=== PATIENT | female | born 1965 | race Caucasian/White ===

== ENCOUNTER 2024-11-28 15:11 | Outpatient (REF) | payer MEDICAID, SELFPAY ==
--- NOTE | 2024-11-28 15:23 | PFT_ITS ---
Flows: FEV1: 39 % of predicted at 0.97 L FVC: 56 % of predicted at 1.79 L FEV1/FVC: 54 % Bronchodilator response: Present Volumes: Total lung capacity: 74 % of predicted at 3.85 L Residual volume: 109 % of predicted at 1.95 L Slow vital capacity: 56 % of predicted at 1.91 L Expiratory reserve volume: 56 % of predicted at 0.47 L Diffusion capacity: Mildly decreased, corrects to normal after adjustment for alveolar ventilation. 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 Decreased expiratory reserve volume suggests extrathoracic restriction likely secondary to abdominal obesity. Decreased diffusion capacity suggests emphysema. MTDD
[2024-11-28 16:03] VITALS: PULSE 86; O2SAT 90
--- OUTSIDE RECORDS SUMMARY | 2024-11-28 17:33 | XMS_ITS | Clinical Summary ---
Author Organization [employer] Address [address] [facility] 7t [place] [address] Care Team Providers Care Retail Interior Designer Name Role Phone Thea Atkinson MD Primary Care Provider + Allergies No known active allergies Medications buPROPion SR (Wellbutrin SR) 100 MG 12 hr tablet Take 1 tablet (100 mg) by mouth 2 times daily. Do not crush, chew, or split. 60 tablet 3 10/23/19 25 026 Active fluticasone furoate (Arnuity Ellipta) 100 MCG/ACT inhaler Inhale 1 puff Once per day. Rinse mouth with water after use to reduce aftertaste and incidence of candidiasis. Do not swallow. 1 each 10/23/19 25 026 Active Blood Pressure Monitoring ([facility] Cuff[facility] Use daily as prescribed 1 each 10/23/19 25 Active Ventolin HFA 108 (90 Base) MCG/ACT inhaler INHALE 2 PUFFS EVERY 6 HOURS IF NEEDED FOR WHEEZING. 18 g 2 11/16/19 25 Active fexofenadine (Neris) 180 MG tablet Take 1 tablet (180 mg) by mouth if needed each day (Allergies). 90 tablet 11/29/19 25 025 Active fluticasone (Flonase) 50 MCG/ACT nasal spray Administer 1 spray into each nostril Once per day. 16 g 2 11/29/19 25 025 Active albuterol 108 (90 Base) MCG/ACT inhaler Inhale 2 puffs every 6 (six) hours if needed for wheezing. 18 g 10/23/19 25 025 Discontinued cetirizine (ZyrTEC) 10 MG tablet Take 1 tablet (10 mg) by mouth Once per day. 30 tablet 2 11/02/19 25 025 Discontinued(In effective) Active Problems Problem Noted Date Diagnosed Date Seasonal allergic rhinitis due to pollen 025 Moderate persistent asthma without complication 10/22/2024 Elevated blood pressure reading 10/22/2024 Encounters Date Type Department Care Team Description 11/23/2024 Telephone [facility] MEDICINE [address] [place] [phone] Thea Atkinson MD Nurse Triage 11/13/2024 Refill [facility] MEDICINE [address] [place] [address] Thea Atkinson MD 10/22/2024 10:45 AM EDT Office Visit [address] [address] Thea Atkinson MD Seasonal allergic rhinitis due to pollen (Primary Dx); Moderate persistent asthma without complication; Elevated blood pressure reading 10/22/2024 Travel 10/18/[address] [address] Keiko Gifford MA chart prep 10/16/2024 Patient Outreach [facility] [address] [place] [address] Thea Atkinson MD Pre-visit Planning (SDOH screening is negative) 08/31/2024 Population Health Risk Score [facility] () Department [address] [place] [phone] Provider, Population Health Generic from Last 3 Months Social History Tobacco Use Types Packs/Day Years Used Date Smoking Tobacco: Former Cigarettes Smokeless Tobacco: Never Comments:1/2 ppd x 43y, quit 6mo ago. Alcohol Use Standard Drinks/Week Comments Yes 0 (1 standard drink = 0.6 oz pur e alcohol) Housing Stability Answer Date Recorded What is your housing situation today? I have rocío santos 10/16/[address] you li ve. Do you have problems with any of the following? None of the above 10/16/2024 Food Insecurity Answer Date Recorded Within the past 12 months, y ou worried that your food would run out before you got money to buy more: Never True 10/16/2024 Within the past 12 months,th e food you bought just didn't last and you didn't have enough money to get more: Never True Transportation Answer Date Recorded In the past 12 months, has l ack of transportation kept you from medical appts, meetings, work or from getting things needed for daily living? No 10/16/2024 Utilities Answer Date Recorded In the past 12 months, has t he electric, gas, oil or water company threatened to shut off services in your home? No 10/16/2024 Internet Access Answer Date Recorded Internet Access Q1 Yes 10/16/2024 Internet Access Q2 Not on file 10/16/2024 Comments Unknown Sex and Gender Information Value Date Recorded Sex Assigned at Female 10/22/2024 10:35 AM EDT Legal Sex Female 1:49 PM EST Gender Identity Female 10/22/2024 10:35 AM EDT Sexual Orientation Don't know 10/22/2024 10 :35 AM EDT Last Filed Vital Signs Vital Sign Reading Time Taken Comments Blood Pressure 146/97 10/22/2024 10:46 AM EDT Pulse 76 10/22/2024 10:46 AM EDT Temperature 36.4 ??C (97.6 ??F) 10/22/2024 10:46 AM E DT Respiratory Rate 24 10/22/2024 10:46 AM EDT Oxygen Saturation 92% 10/22/2024 10:46 AM EDT Inhaled Oxygen Concentration - - Weight 93.2 kg (205 lb 6 oz) 10/22/2024 10:46 AM EDT Height - - Body Mass Index - - Plan of Treatment Upcoming Encounters Date Type Department Care Team (Late st Contact Info) Description 01/21/2025 3:15 PM EDT Office Visit [facility] MEDICINE [address] [place] [address] Thea Atkinson MD [address] [place] [address] Health Maintenance Due Date Last Done Comments CT Colonography 1963 Colonoscopy 1963 Colorectal Cancer Screening 1963 Depression Screening 1963 FIT DNA/Cologuard 1963 FIT 1963 FOBT 1963 HIV Screening 1963 Sigmoidoscopy 1963 Disability Screening 1963 Alcohol/Substance Use Screening 1975 Hepatitis C Screening 11/10/1981 DTaP/Tdap/Td Vaccines (1 - Tdap) 11/10/1982 Pneumococcal Vaccine: 50+ Ye ars (1 of 2 - PCV) 11/10/1982 Pap Smear 11/10/1984 Cervical Cancer Screening 11/10/1993 HPV/Cotest 11/10/1993 Mammogram 2003 Zoster Vaccines (1 of 2) 11/10/2013 RSV Patients and Pa tients Aged 60 years or older (1 - Risk 60-74 years 1-dose series) 2023 COVID-19 Vaccine (1 - 2023-2 5 season) 2024 Influenza Vaccine (Season Ended) 2025 SDOH Screening 10/16/2025 10/16/2024 Tobacco Screening 10/22/2025 10/22/2024 HIB Vaccines Aged Out No longer eligi ble based on patient's age to complete this topic HPV Vaccines Aged Out No longer eligi ble based on patient's age to complete this topic Hepatitis A Vaccines Aged Out No long er eligible based on patient's age to complete this topic Hepatitis B Vaccines Aged Out No long er eligible based on patient's age to complete this topic IPV Vaccines Aged Out No longer eligi ble based on patient's age to complete this topic Meningococcal B Vaccine Aged Out No l onger eligible based on patient's age to complete this topic Meningococcal Vaccine Aged Out No logan adelfo eligible based on patient's age to complete this topic RSV under 20 months Aged Out No longe r eligible based on patient's age to complete this topic Rotavirus Vaccines Aged Out No longer eligible based on patient's age to complete this topic Insurance [facility] C3 Care Teams Retail Interior Designer Relationship Specialty Start Date End Date Thea Atkinson MD [address] [place] [id number] PCP - General Internal Medicine 11/23/24
== END 2024-11-28 15:12 | disposition home or self-care (01) ==
LOC: HO.RESP 15:11
PROVIDERS: PCP Internal Medicine; Visit Provider Internal Medicine
DX: J45.40 Moderate persistent asthma, uncomplicated (principal)
CPT/HCPCS: 94010; 94640; 94727; 94729

== ENCOUNTER → 2024-11-28 15:23 | Outpatient (BNV) | payer MEDICAID, SELFPAY | PROVIDERS: PCP Internal Medicine; Visit Provider Internal Medicine Pulmonary Disease | DX: R06.00 Dyspnea, unspecified (principal) | CPT/HCPCS: 94060; 94727; 94729 ==

== ENCOUNTER 2025-02-11 16:20 | Outpatient (REF) | payer MEDICAID, SELFPAY ==
--- OUTSIDE RECORDS SUMMARY | 2025-02-11 18:05 | XMS_ITS | Encounter Summary ---
Author Organization [employer] Address [address] [facility] 7t [place] [address] Care Team Providers Care Financial Solutions Advisor Name Role Phone Thea Atkinson MD Primary Care Provider + Reason for Visit * Reason Onset Date Comments Med Refill 01/14/2025 Encounter Details Date Type Department Care Team (Late st Contact Info) Description 01/14/2025 Refill [facility] MEDICINE [address] [place], [place] [phone] Thea Atkinson MD [address] [place], [place] [phone] Social History Tobacco Use Types Packs/Day Years [...] Don't know 10/22/2024 10 :35 AM EDT documented as of this encounter Plan of Treatment Upcoming Encounters Date Type Department Care Team (Late st Contact Info) Description 04/04/2025 10:15 AM EDT Office Visit [facility] MEDICINE [address] [place] [address] Thea Atkinson MD [address] [place] [address] 05/03/2025 2:30 PM EST Office Visit [facility] OPTOMETRY [address] [place] [address] Elizabeth Mckeon, OD [address] [place] [address] documented as of this encounter Visit Diagnoses Not on filedocumented in this encounter Care Teams Financial Solutions Advisor Relationship Specialty Start Date End Date Thea Atkinson MD [address] [place] [address] PCP - General Internal Medicine 11/23/24 documented as of this encounter
--- OUTSIDE RECORDS SUMMARY | 2025-02-11 18:05 | XMS_ITS | Clinical Summary ---
Author Organization [employer] Address [address] [facility] 7t [place] [address] Care Team Providers Care Feed Handler Name Role Phone Thea Atkinson MD Primary Care Provider + Allergies No known active allergies Medications buPROPion SR (Wellbutrin SR) 100 MG 12 hr tablet Take 1 tablet (100 mg) by mouth 2 times daily. Do not crush, chew, or split. 60 tablet 3 5 10/23/19 26 Active fluticasone furoate (Arnuity Ellipta) 100 MCG/ACT inhaler Inhale 1 puff Once per day. Rinse mouth with water after use to reduce aftertaste and incidence of candidiasis. Do not swallow. 1 each 11 5 10/23/19 26 Active Blood Pressure Monitoring (Blood Pressure Cuff) misc Use daily as prescribed 1 each 5 Active Ventolin HFA 108 (90 Base) MCG/ACT inhaler INHALE 2 PUFFS EVERY 6 HOURS IF NEEDED FOR WHEEZING. 18 g 2 5 Active fexofenadine (Neris) 180 MG tablet Take 1 tablet (180 mg) by mouth if needed each day (Allergies). 90 tablet 5 02/27/20 25 Active fluticasone (Flonase) 50 MCG/ACT nasal spray Administer 1 spray into each nostril Once per day. 16 g 2 5 Active Multiple Vitamins-Mineral s (Eye Health Areds 2) capsuleIndicatio ns:Intermediate stage nonexudative age-related macular degeneration of left eye Take 1 tablet by mouth 2 times daily. 60 capsule 11 5 02/01/20 25 Active Problems Problem Noted Date Diagnosed Date Screening mammogram for breast cancer 12/25/2024 Seasonal allergic rhinitis due to pollen 025 Assessment & Plan (12/25/2024 3:12 PM EDT): Use OTC Claritin as needed and Flonase, follow-up with me in 6 weeks Moderate persistent asthma without complication 10/22/2024 Assessment & Plan (12/25/2024 3:16 PM EDT): Continue albuterol as needed Congratulated her for quitting smoking and discussed with her regarding nicotine replacement therapy and call back as needed for prescription Elevated blood pressure reading 10/22/2024 Assessment & Plan (12/25/2024 3:11 PM EDT): History of hypertension, Advised to check BP at home 3 times per week and follow-up with me in 6 weeks Counseled re low salt diet/increase moderate physical activity. Order labs Non smoking patient. Encounters Date Type Department Care Team Description 01/23/2025 11:00 AM EDT Office Visit [facility] OPTOMETRY [address] [facility] [address] Rosita Wade, OD Presbyopia (Primary Dx) 01/23/2025 Travel 01/22/[address] [facility] MEDICINE [address] [place] [address] Thea Atkinson MD PCP appt 01/18/[address] [facility] MEDICINE [address] [place] [address] Thea Atkinson MD Chart Prep 01/14/[address] [facility] [place] [address] Thea Atkinson MD 01/13/[address] [facility] MEDICINE [address] [place] [address] Thea Atkinson MD 12/31/2024 9:00 AM EDT Office Visit 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 MEDICINE [address] [place] [address] Thea Atkinson MD Nurse Triage 11/13/[address] [facility] MEDICINE [address] [place] [address] Thea Atkinson MD from Last 3 Months Social History Tobacco Use Types Packs/Day Years Used Date Smoking Tobacco: Former Cigarettes Smokeless Tobacco: Never Comments:06/21 ppd x 43y, quit 6mo ago. Alcohol Use Standard Drinks/Week Comments Yes 0 (1 standard drink = 0.6 oz pur e alcohol) Housing Stability Answer Date Recorded What is your housing situation today? I have rocíoberyl santos 10/16/[address] you [...] 76 10/22/2024 10:46 AM EDT Temperature 36.4 C (97.6 F) 10/22/2024 10:46 AM EDT Respiratory Rate 24 10/22/2024 10:46 AM EDT Oxygen Saturation 92% 10/22/2024 10:46 AM EDT Inhaled Oxygen Concentration - - Weight 93.2 kg (205 lb 6 oz) 10/22/2024 10:46 AM EDT Height - - Body Mass Index - - Plan of Treatment Upcoming Encounters Date Type Department Care Team (Late st Contact Info) Description 04/04/2025 10:15 AM EDT Office Visit [facility] MEDICINE [address] [place] [address] Thea Atkinson MD [address] [place] [address] 05/03/2025 2:30 PM EST Office Visit [facility] OPTOMETRY [address] [place] [address] Elizabeth Mckeon, OD [address] [place] [address] Health Maintenance Due Date Last Done Comments [...] 60-74 years 1-dose series) 2023 COVID-19 Vaccine ( - 2023-2 5 season) 2024 Influenza Vaccine (#1) 2025 SDOH Screening 10/16/2025 10/16/2024 Tobacco Screening 12/31/2025 12/31/2024 HIB Vaccines Aged Out No longer eligi [...] this topic Meningococcal Vaccine Aged Out No lgoan adelfo eligible based on patient's age to complete this topic RSV under 20 months Aged Out No longe r eligible based on patient's age to complete this topic Rotavirus Vaccines Aged Out No longer eligible based on patient's age to complete this topic Procedures Procedure Name Priority Date/Time Associated Diagnosis Comments OCT, RETINA - OU - BOTH EYES Routine 12/31/2024 9:00 AM EDT 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 OCT RETINA INTERPRETATION Optical Coherence Tomography Interpretation Report Reliability: OD: SS 46 - adequate quality scan OS: SS 55 - good quality scan Measurements: Central subfoveal thickness OD: 246 microns OS: 249 microns Test findings: OD: Hard drusen throughout macula, some early retinal pigment epithelium (RPE) pigment migration, (-) IRF/SRF. Baseline. OS: Mostly hard drusen with some coalescent drusen throughout macula, (-) IRF/SRF. Baseline. Impression and Plan: Early dry age-related macular degeneration (ARMD) right eye (OD), intermediate dry age-related macular degeneration (ARMD) left eye (OS). Monitor in 3 months us Elizabeth Mckeon OD OPHTH TOMOGRAPHY Final Result from Last 3 Months Insurance [facility] C3 Care Teams Feed Handler Relationship Specialty Start Date End Date Thea Atkinson MD [address] [place] [phone] PCP - General Internal Medicine 11/23/24
--- OUTSIDE RECORDS SUMMARY | 2025-02-11 18:05 | XMS_ITS | Encounter Summary ---
Author Organization [employer] Address [address] [facility] [address] 7t [place] [address] Care Team Providers Care Medical Reimbursement Specialist Name Role Phone Thea Atkinson MD Primary Care Provider + Reason for Visit * Reason Comments Med Refill Encounter Details Date Type Department Care Team ([facility] st Contact Info) Description 01/13/2025 Refill [facility] MEDICINE [address] [place], [place] [phone] Thea Atkinson MD [address] [place], [place] [phone] Social History Tobacco Use Types Packs/Day Years Used Date Smoking Tobacco: Former Cigarettes Smokeless Tobacco: Never Comments:1/ ppd x 43y, quit 6mo ago. Alcohol [...] Description 04/04/2025 10:15 AM EDT Office Visit [facility] MEDICINE [address] [place] [address] Thea Atkinson MD [address] [place] [address] 05/03/2025 2:30 PM EST Office Visit [facility] OPTOMETRY [address] [place] [address] Elizabeth Mckeon, OD [address] [place] [address] documented as of this encounter Visit Diagnoses Not on filedocumented in this encounter Care Teams Medical Reimbursement Specialist Relationship Specialty Start Date End Date Thea Atkinson MD [address] [place] [phone] PCP - General Internal Medicine 11/23/24 documented as of this encounter
== END 2025-02-11 16:21 | disposition home or self-care (01) ==
LOC: HO.MAMMO 16:20
PROVIDERS: PCP Internal Medicine; Visit Provider Internal Medicine
DX: Z12.31 Encounter for screening mammogram for malignant neoplasm of breast (principal)
CPT/HCPCS: 77063; 77067

== ENCOUNTER → 2025-02-11 16:30 | Outpatient (BNV) | payer MEDICAID, SELFPAY | PROVIDERS: PCP Internal Medicine; Visit Provider Radiology Body Imaging | DX: Z12.31 Encounter for screening mammogram for malignant neoplasm of breast (principal) | CPT/HCPCS: 77063; 77067 ==

== ENCOUNTER 2025-04-04 08:41 | Outpatient (REF) | payer MEDICAID, SELFPAY ==
--- OUTSIDE RECORDS SUMMARY | 2025-04-04 09:30 | XMS_ITS | Encounter Summary ---
Author Organization [employer] Address [address] [facility] 7t [place] [address] Care Team Providers Care Web Producer Name Role Phone Thea Atkinson MD Primary Care Provider + Reason for Visit * Reason Onset Date Comments Med Refill 01/14/2025 Encounter Details Date Type Department Care Team (Late st Contact Info) Description 01/14/2025 Refill [facility] MEDICINE [address] [place], [place] [phone] Thea Atkinson MD [address] [place], [place] [phone] Social History Tobacco Use Types Packs/Day Years [...] Description 04/04/2025 10:15 AM EDT Office Visit [facility] MEDICINE [address] [place] [address] Thea Atkinson MD [address] [place] [address] 05/03/2025 2:30 PM EST Office Visit [facility] OPTOMETRY [address] [place] [address] Elizabeth Mckeon, OD [address] [place] [address] documented as of this encounter Visit Diagnoses Not on filedocumented in this encounter Care Teams Web Producer Relationship Specialty Start Date End Date Thea Atkinson MD [address] [place] [address] PCP - General Internal Medicine 11/23/24 documented as of this encounter
--- OUTSIDE RECORDS SUMMARY | 2025-04-04 09:30 | XMS_ITS | Encounter Summary ---
Author Organization [employer] Address [address] [facility] [address] [place] [address] Care Team Providers Care Stretching Press Operator Name Role Phone Thea Atkinson MD Primary Care Provider + Reason for Visit * Reason Onset Date Comments Labs Only 04/01/2025 Encounter Details Date Type Department Care Team ([facility] st Contact Info) Description 04/01/2025 Telephone [facility] MEDICINE [address] [place], [place] [phone] Thea Atkinson MD [address] [place], [place] [phone] Labs Only Social History Tobacco Use Types Packs/Day Years [...] AM EDT documented as of this encounter Miscellaneous Notes * Telephone Encounter - Courtney Goss MA - 04/01/2025 11:51 AM EDT TC to pt, LVM. Call was regarding open labs that need to be done prior to appt on 04/04/2025 @ 10:15 am. If pt CB please inform her that labs need to be completed. documented in this encounter Plan of Treatment Upcoming Encounters Date Type Department Care Team (Late st Contact Info) Description 04/04/2025 10:15 AM EDT Office Visit [facility] MEDICINE [address] [place] [address] Thea Atkinson MD [address] [place] [address] 05/03/2025 2:30 PM EST Office Visit [facility] OPTOMETRY [address] [place] [address] Elizabeth Mckeon, OD [address] [place] [address] documented as of this encounter Visit Diagnoses Not on filedocumented in this encounter Care Teams Stretching Press Operator Relationship Specialty Start Date End Date Thea Atkinson MD [address] [place] [address] PCP - General Internal Medicine 11/23/24 documented as of this encounter
--- OUTSIDE RECORDS SUMMARY | 2025-04-04 09:30 | XMS_ITS | Clinical Summary ---
Author Organization [employer] Address [address] [facility] 7t [place] [address] Care Team Providers Care Giant Tire Repairer Name Role Phone Thea Atkinson MD Primary Care Provider + Allergies No known active allergies Medications fluticasone furoate (Arnuity Ellipta) 100 MCG/ACT inhaler Inhale 1 puff Once per day. Rinse mouth with water after use to reduce aftertaste and incidence of candidiasis. Do not swallow. 1 each 11 10/23/19 25 026 Active Blood Pressure Monitoring (Blood Pressure Cuff) misc Use daily as prescribed 1 each 10/23/19 25 Active Ventolin HFA 108 (90 Base) MCG/ACT inhaler INHALE 2 PUFFS EVERY 6 HOURS IF NEEDED FOR WHEEZING. 18 g 2 11/16/19 25 Active fexofenadine (Neris) 180 MG tablet Take 1 tablet (180 mg) by mouth if needed each day (Allergies). 90 tablet 11/29/19 25 Active fluticasone (Flonase) 50 MCG/ACT nasal spray Administer 1 spray into each nostril Once per day. 16 g 2 11/29/19 25 Active buPROPion SR (Wellbutrin SR) 100 MG 12 hr tablet TAKE 1 TABLET BY MOUTH TWICE A DAY. DO NOT CRUSH, CHEW OR SPLIT. 60 tablet 3 03/15/20 25 Active buPROPion SR (Wellbutrin SR) 100 MG 12 hr tablet Take 1 tablet (100 mg) by mouth 2 times daily. Do not crush, chew, or split. 60 tablet 3 10/23/19 25 025 Discontinued Active Problems Problem Noted Date Diagnosed Date [...] Encounters Date Type Department Care Team Description 04/01/2025 Telephone [facility] [address] [place] [address] Thea Atkinson MD Chart prep 04/01/2025 Telephone [facility] [address] [place] [address] Thea Atkinson MD Labs Only 03/15/2025 Refill [facility] [address] [place] [address] Thea Atkinson MD 01/23/2025 11:00 AM EDT Office Visit [facility] OPTOM[facility] [address] [place] [address] Mauro, Rosita, OD Presbyopia (Primary Dx) 01/23/2025 Travel 01/22/2025 Telephone [facility] [address] [place] [address] Thea Atkinson MD PCP appt 01/18/2025 Telephone [facility] [address] [place] [address] Thea Atkinson MD Chart Prep 01/14/2025 Refill [facility] [address] [place] [address] Thea Atkinson MD 01/13/2025 Refill [facility] [address] [place] [address] Thea Atkinson MD from Last 3 Months Social History Tobacco Use Types Packs/Day Years Used Date Smoking Tobacco: Former Cigarettes Smokeless Tobacco: Never Comments:1/2 ppd x 43y, quit 6mo ago. Alcohol Use Standard Drinks/Week Comments Yes 0 (1 standard drink = 0.6 oz pur e alcohol) Housing Stability Answer Date Recorded What is your housing situation today? I have rocío danielle 10/16/[address] you li [...] Description 04/04/2025 10:15 AM EDT Office Visit [facility] [address] [place] [address] Thea Atkinson MD [address] [place] [address] 05/03/2025 2:30 PM EST Office Visit [facility] OPTOM[facility] [address] [place] [address] Elizabeth Mckeon, OD [address] [place] [address] Health Maintenance Due Date Last Done Comments [...] 11/10/1984 Cervical Cancer Screening 11/10/1993 HPV/Cotest 11/10/1993 Zoster Vaccines (1 of 2) 11/10/2013 RSV Patients and Pa tients Aged 60 years or older (1 - Risk 60-74 years 1-dose series) 2023 COVID-19 Vaccine ( - 2023-2 5 season) 2025 Influenza Vaccine (#1) 2025 SDOH Screening 10/16/2025 10/16/2024 Tobacco Screening 12/31/2025 12/31/2024 Mammogram 02/11/2026 02/11/2025 HIB Vaccines Aged Out No longer eligi [...] Procedure Name Priority Date/Time Associated Diagnosis Comments BI MAMMOGRAM SCREENING TOMOSYNTHESIS BILATERAL Routine 02/11/2025 4:24 PM EDT Screening mammogram for breast cancer from Last 3 Months Results * BI Mammogram Screening Tomosynthesis Bilateral (02/11/2025 4:24 PM EDT) Anatomical Region Laterality Modality Breast Bilateral Mammography 02/11/2025 4:24 PM EDT Narrative 02/15/2025 7:27 PM EDT [facility] [address] [place] [address] Mammography Report Signed Patient: Neli Ingram MR#: [id number] : 1965 Acct:[id number] Age/Sex: 59 / F ADM Date: 02/11/25 Loc: HO.MAMMO Attending Dr: Thea Atkinson MD Ordering Physician: Thea Atkinson MD Results: 1Ne gative Date of Service: 02/11/25 Follow Up: 1 Year From Orig ina Mammogram Procedure(s): MM tomosynthesis screening BI Accession Number(s): [id number] cc: Thea Atkinson MD EXAMINATION: MM SCREENING DIGITAL BREAST TOMOSYNTHESIS, BILATERAL CLINICAL INFORMATION: Screening. Asymptomatic. COMPARISON: None. This is a baseline study. TECHNIQUE: Digital breast tomosynthesis is performed in both the craniocaudal and mediolateral oblique views along with computer-aided detection (CAD). FINDINGS: BREAST COMPOSITION: The breasts are heterogeneously dense, which may obscure small masses (ACR BI-RADS breast composition Category c). BILATERAL BREASTS: No significant masses, suspicious calcifications or other abnormalities are seen in either breast. MM/MM tomosynthesis screening BI IMPRESSION: BILATERAL BREASTS: Negative, no mammographic evidence of malignancy. Normal interval follow-up is recommended in 12 months. ASSESSMENT: BI-RADS 1 - Negative RECOMMENDATION: Routine annual mammography screening. FOLLOW-UP: 1 year F/U This examination should not preclude the clinical evaluation of a suspicious palpable abnormality. This patient's information was entered into a reminder system with a target due date for their next mammogram. Electronically signed by: Nicolas Peraza MD 02/15/2025 07:23 PM EDT Dictated By: Nicolas Peraza MD Signed By: <Electronically signed by Nicolas Peraza MD in OV> 02/15/25 1923 DD/ 1624 TD/TT: 02/11/25 1644 Logistician: Procedure Note Donotuseinterpreter, Image - 02/15/20[facility] [address] [place] [address] Mammography Report Signed Patient: Neli Ingram [facility]#: [id number] : 1965Acct:[id number] Age/Sex: 59 / FADM Date: 02/11/25 Loc: .MAMMO Attending Dr: Thea Atkinson MD Ordering Physician: Thea Atkinson MDResults: 1Ne gative Date of Service: 02/11/25Follow Up: 1 Year From [facility] Mammogram Procedure(s): MM tomosynthesis screening BI Accession Number(s): [id number] cc: Thea Atkinson MD EXAMINATION: MM SCREENING DIGITAL BREAST TOMOSYNTHESIS, BILATERAL CLINICAL INFORMATION: Screening. Asymptomatic. COMPARISON: None. This is a baseline study. TECHNIQUE: Digital breast tomosynthesis is performed in both the craniocaudal and mediolateral oblique views along with computer-aided detection (CAD). FINDINGS: BREAST COMPOSITION: The breasts are heterogeneously dense, which may obscure small masses (ACR BI-RADS breast composition Category c). BILATERAL BREASTS: No significant masses, suspicious calcifications or other abnormalities are seen in either breast. MM/MM tomosynthesis screening BI IMPRESSION: BILATERAL BREASTS: Negative, no mammographic evidence of malignancy. Normal interval follow-up is recommended in 12 months. ASSESSMENT: BI-RADS 1 - Negative RECOMMENDATION: Routine annual mammography screening. FOLLOW-UP: 1 year F/U This examination should not preclude the clinical evaluation of a suspicious palpable abnormality. This patient's information was entered into a reminder system with a target due date for their next mammogram. Electronically signed by: Nicolas Peraza MD 02/15/2025 07:23 PM EDT Dictated By: Nicolas Peraza MD Signed By: <Electronically signed by Nicolas Peraza MD in OV> 02/15/25 1923 DD/ 1624 TD/TT: 02/11/25 1644 Logistician: us Thea Atkinson MD IMG BI PROCEDURES Final Result from Last 3 Months Insurance [facility] C3 Care Teams [employer] Repairer Relationship Specialty Start Date End Date Thea Atkinson MD [address] [place] [id number] PCP - General Internal Medicine 11/23/24
--- OUTSIDE RECORDS SUMMARY | 2025-04-04 09:30 | XMS_ITS | Encounter Summary ---
Author Organization [employer] Address [address] [facility] [address] 7t [place] [address] Care Team Providers Care Drill Setup Operator Name Role Phone Thea Atkinson MD Primary Care Provider + Reason for Visit * Reason Onset Date Comments Chart prep 04/01/2025 Encounter Details Date Type Department Care Team ([facility] st Contact Info) Description 04/01/2025 Telephone [facility] MEDICINE [address] [place], [place] [phone] Thea Atkinson MD [address] [place], [place] [phone] Chart prep Social History Tobacco Use Types Packs/Day Years [...] Encounter - Courtney Goss [place] - 04/01/2025 11:54 AM EDT Chart Prep Labs: not done from 10/22/24 Images: done Referrals: complete Vaccines due: Covid, Flu, PCV20, Tdap, RSV, and Zoster Screenings: colonoscopy, pap smear, HIV screening, Hepatitis C screening, Overdue care gaps: SBIRT, PHQ-9, PERCY-7, Disability screen, and Tobacco documented in this encounter Plan of Treatment Upcoming Encounters Date Type Department Care Team (Late st Contact Info) Description 04/04/2025 10:15 AM EDT Office Visit [facility] MEDICINE [address] [place] [address] Thea Atkinson MD [address] [place] [address] 05/03/2025 2:30 PM EST Office Visit [facility] OPTOMETRY [address] [place] [address] Elizabeth Mckeon, OD [address] [place] [address] documented as of this encounter Visit Diagnoses Not on filedocumented in this encounter Care Teams Drill Setup Operator Relationship Specialty Start Date End Date Thea Atkinson MD [address] [place] [address] PCP - General Internal Medicine 11/23/24 documented as of this encounter
--- OUTSIDE RECORDS SUMMARY | 2025-04-04 09:30 | XMS_ITS | Encounter Summary ---
Author Organization [employer] Address [address] [facility] [facility] [address] 7[address] [place] [address] Care Team Providers Care Window Trimmer Name Role Phone Thea Atkinson MD Primary Care Provider + Reason for Visit * Reason Comments Med Refill Encounter Details Date Type Department Care Team ([facility] st Contact Info) Description 01/13/2025 Refill [facility] MEDICINE [address] [place], [place] [phone] Thea Atkinson MD [address] [place], [place] [phone] Social History Tobacco Use Types Packs/Day Years [...] Description 04/04/2025 10:15 AM EDT Office Visit [facility] MEDICINE [address] [place] [address] Thea Atkinson MD [address] [place] [address] 05/03/2025 2:30 PM EST Office Visit [facility] OPTOMETRY [address] [place] [address] Elizabeth Mckeon, OD [address] [place] [address] documented as of this encounter Visit Diagnoses Not on filedocumented in this encounter Care Teams Window Trimmer Relationship Specialty Start Date End Date Thea Atkinson MD [address] [place] [id number] PCP - General Internal Medicine 11/23/24 documented as of this encounter
[2025-04-04 10:59] LABS: MANUAL DIFF FLAG NO
[2025-04-04 11:22] LABS: Hematocrit 50.0 % (37.0-47.0); Hemoglobin 16.3 g/dl (12.0-16.0); Imm Gran Abs Auto 0.03 X10*3/uL (0.00-0.03); Imm Gran Pct Auto 0.5 % (0.0-0.4); Lymphocytes Absolute Auto 1.1 X10*3/uL (1.2-4.9); Mean Corpuscular HGB Conc 32.6 g/dl (31.0-35.0); Mean Corpuscular Hemoglobin 31.5 pg (27.0-33.0); Mean Corpuscular Volume 96.5 fL (80.0-98.0); NRBC Abs Auto 0.000 X10*3/uL (0.0-0.012); NRBC Pct Auto 0.0 /100WBC (0.0-0.2); Platelet Count 276 X10*3/uL (160-400); Red Blood Count 5.18 X10*6/uL (4.20-5.50); White Blood Count 6.3 X10*3/uL (4.8-10.8)
[2025-04-04 12:06] LABS: Alanine Aminotransferase 18 U/L (0-31); Albumin Level 4.4 g/dL (3.5-5.0); Anion Gap 11 (12-20); Aspartate Amino Transferase 19 U/L (5-31); Blood Urea Nitrogen 12 mg/dL (9-16); Calcium 9.2 mg/dL (8.4-10.2); Carbon Dioxide 31 mmol/L (22-29); Chloride 105 mmol/L (96-108); Cholesterol 178 mg/dL (<200); Estimated Glomerular Filt Rate > 60; HDL Cholesterol 51 mg/dL (>40); Potassium 4.3 mmol/L (3.3-5.1); Sodium 143 mmol/L (135-145); Total Protein 7.2 g/dL (6.5-8.0); Triglycerides 86 mg/dL (<150)
[2025-04-04 12:14] LABS: Reflex LDLD? No
[2025-04-04 12:32] LABS: Alkaline Phosphatase 52 U/L (39-117)
== END 2025-04-04 08:42 | disposition home or self-care (01) ==
LOC: HO.HHCL 08:41
PROVIDERS: PCP Internal Medicine; Visit Provider Internal Medicine
DX: J30.1 Allergic rhinitis due to pollen (principal); J45.40 Moderate persistent asthma, uncomplicated; R03.0 Elevated blood-pressure reading, without diagnosis of hypertension
CPT/HCPCS: 36415; 80053; 80061; 82306; 83036; 84443; 85025

== ENCOUNTER → 2025-05-10 14:37 | Outpatient (REF) | payer MEDICAID, SELFPAY ==
--- NOTE | 2025-05-10 14:41 | CA_ITS ---
Transthoracic Echocardiogram Patient (Last, First, Middle): Neli Ingram M Gender: F Date of : 1965 Age: 59 Procedure Date: 05/10/2025 Procedure Type: Transthoracic Echocardiogram Location: OP Height: 162.56 cm Weight: 90.72 kg BSA: 1.96 m2 Heart Rate: bpm BP: 132 / 88 mmHg Relocation Director: TO Referring MD: Thea Atkinson MD Symptoms: DYSPNEA ON EXERTION Study Quality: Technically Difficult ECG Rhythm: Sinus Conclusions: - The left ventricular systolic function is normal. The visually estimated ejection fraction is between 55-60%. - No obvious valvular pathology seen on this study. Findings Procedure Information The patient declines contrast. Left Ventricle Normal left ventricular cavity size. There is mildly increased left ventricular wall thickness. The left ventricular systolic function is normal. The visually estimated ejection fraction is between 55-60%. There is no evidence of regional wall motion abnormalities. Diastolic function is normal for age. Right Ventricle Normal right ventricular cavity size and systolic function. Atria The left atrium is mildly dilated. The right atrium is normal in size. Aortic Valve The aortic valve was not well visualized. There is no aortic valve stenosis. There is no aortic valve regurgitation. Mitral Valve The mitral valve appears normal. There is trace mitral valve regurgitation. There is no mitral valve stenosis. Pulmonic Valve The pulmonic valve is likely normal. Tricuspid Valve There is no tricuspid valve regurgitation. Tricuspid regurgitation envelope is inadequate for calculation of right ventricular systolic pressure. Great Vessels The asc aorta is normal in size. Venous The inferior vena cava is normal in size and collapses greater than 50% with inspiration. Pericardium/Pleural There is no evidence of pericardial effusion. Prior Study Comparison No prior study available for comparison. Recommendations, Care & Conclusions No obvious valvular pathology seen on this study. Measurements 2D Linear Measurements IVSd: 1.23 0.6-0.9/0.6-1.0 cm LVIDd: 4.52 3.9-5.3/4.2-5.9 cm LVIDd Index: 2.31 2.4-3.2/2.2-3.1 cm/m2 LVIDs: 2.73 2.0-3.6 cm LVPWd: 1.07 0.7-1.1 cm LA Diam: 3.70 2.7-3.8/3.0-4.0 cm LAIDs Index: 1.89 1.5-2.3 cm/m2 LV Mass: 233.86 67-162/88-224 g LV Mass Index: 119.32 43-95/49-115 g/m2 LVOT Diam: 2.10 3.0+(-)1.3 cm Mitral Valve MV Pk E: 0.44 MV PK A: 0.86 MV Decel Time: 194.00 E/A: 0.50 E'Lateral: 6.09 E'Medial: 4.57 E/E' Med: 9.60 E/E' Lat: 7.20 PHT: 57.00 MVA PHT: 3.86 Decel [place]: 2.25 Aortic Valve AoV Pk Mark: 1.51 AoV Mn Mark: 1.03 AoV VTI: 0.27 AoV Pk Grad: 9.00 Aov Mn Grad: 5.00 CANDELARIO Cont.VTI: 2.98 LVOT LVOT Pk Mark: 1.30 LVOT Mn Mark: 0.82 LVOT VTI: 0.24 LVOT Pk Grad: 7.00 LVOT Mn Grad: 3.00 LVOT Diam: 2.10 LVOT Area: 3.46 Diastolic Function MV Pk E: 0.44 MV Pk A: 0.86 E/A: 0.50 E'Medial: 4.57 E/E' Med: 9.60 E' Laterial: 6.09 E/E' Lat: 7.20 Right Ventricle TAPSE (mm): 21.90 TVS' Mark: 11.10 Tricuspid Valve RA Press: 3.00 Great Vessels Aorta Sinus of Valsalva: 3.43 2.0-3.5 cm Ao Asc: 3.70 2.1-3.4 cm Updated in Other Vendor System with Status of Final Arnold Suero MD electronically signed on 05/11/2025 11:26:32 AM with status of Final
--- OUTSIDE RECORDS SUMMARY | 2025-05-10 14:56 | XMS_ITS | Encounter Summary ---
Author Organization [employer] Address [address] [facility] 7t [place] [address] Care Team Providers Care Visitor Services Information Assistant Name Role Phone Thea Atkinson MD Primary Care Provider + Reason for Visit * Reason Onset Date Comments Med Refill 04/15/2025 Encounter Details Date Type Department Care Team (Late st Contact Info) Description 04/15/2025 Refill [facility] MEDICINE [address] [place], [place] [phone] Thea Atkinson MD [address] [place], [place] [phone] Social History Tobacco Use Types Packs/Day Years Used Date Smoking Tobacco: Former Cigarettes Smokeless Tobacco: Never Comments:1 ppd x 43y, quit 6mo ago. Quit 1 yr ago 2023 Alcohol Use Standard Drinks/Week Comments Yes 0 (1 standard drink = 0.6 oz pur e alcohol) Depression Answer Date Recorded Patient Health Questionnaire-9 Score 6 04/17/2025 Patient Health Questionnaire-9 Score 6 04/17/2025 Last PHQ-9: Questionnaire Data Not on file 1 Housing Stability Answer Date Recorded What is [...] off services in your home? No 10/16/2024 Depression Answer Date Recorded Patient Health Questionnaire-2 Score 2 04/17/2025 Internet Access Answer Date Recorded Internet Access Q1 Yes 10/16/2024 Internet Access Q2 Not on file 10/16/2024 Comments Unknown Sex and Gender Information Value Date Recorded Sex Assigned at Female 10/22/2024 10:35 AM EDT Legal Sex Female 1:49 PM EST Gender Identity Female 10/22/2024 10:35 AM EDT Sexual Orientation Don't know 10/22/2024 10 :35 AM EDT documented as of this encounter Functional Status * Over the past 2 weeks, how often have you been bothered by any of the following problems? Question Answer Date of Assessment Author Patient Health Questionnaire-2 Score 2 04/17/2025 4:18 PM EDT Nighat Proctor LMHC * Little interest or pleasure in doing things Answer Date of Assessment Author Several days 04/17/2025 4:18 PM EDT Nighat Casper LMHC * Feeling down, depressed, or hopeless Answer Date of Assessment Author Several days 04/17/2025 4:18 PM EDT Nighat Casper LMHC * Trouble falling or staying asleep, or sleeping too much Answer Date of Assessment Author Several days 04/17/2025 4:18 PM EDT Nighat Casper LMHC * Feeling tired or having little energy Answer Date of Assessment Author Nearly every day 04/17/2025 4:18 PM EDT Nighat Tracey Ba, LMHC * Poor appetite or overeating Answer Date of Assessment Author Not at all 04/17/2025 4:18 PM EDT Nighat Casper LMHC * Feeling bad about yourself - or that you are a failure or have let yourself or your family down Answer Date of Assessment Author Not at all 04/17/2025 4:18 PM EDT Nighat Casper LMHC * Trouble concentrating on things, such as reading the newspaper or watching television Answer Date of Assessment Author Not at all 04/17/2025 4:18 PM EDT Nighat Casper LMHC * Moving or speaking so slowly that other people could have noticed? Or the opposite - being so fidgety or restless that you have been moving around a lot more than usual. Answer Date of Assessment Author Not at all 04/17/2025 4:18 PM EDT Nighat Casper LMHC * Thoughts that you would be better off or hurting yourself in some way Answer Date of Assessment Author Not at all 04/17/2025 4:18 PM EDT Nighat Casper LMHC * Patient Health Questionnaire-9 Score Answer Date of Assessment Author 6 04/17/2025 4:18 PM EDT Nighat Casper LMHC * How difficult have these problems made it for you to do your work, take care of things at home, or get along with other people? Answer Date of Assessment Author Somewhat difficult 04/17/2025 4:18 PM EDT Nighat Proctor LMHC * Over the last 2 weeks, how often have you been bothered by any of the following problems? Question Answer Date of Assessment Author Feeling nervous, anxious, or on edge 3 04/17/2025 4:18 PM EDT Lupe Proctor ctoria, LOISHC Not being able to stop or control worrying 3 04/17/2025 4:18 PM EDT Lupe Proctor ctoria, LOISHC Worrying too much about different things 3 04/17/2025 4:18 PM EDT Lupe Proctor ctoria, LOISHC Trouble relaxing 3 04/17/2025 4:18 PM EDT Nighat Henderson, LEIGH ANN Being so restless that it is hard to sit still 3 04/17/2025 4:18 PM EDT Lupe Proctor ctoria, LMHC Becoming easily annoyed or irritable 3 04/17/2025 4:18 PM EDT Lupe Proctor ctoria, LMHC Feeling afraid as if something awful might happen 3 04/17/2025 4:18 PM EDT Nighat Tracey Ba, LMHC PERCY-7 Total Score 21 04/17/2025 4:18 PM EDT Nighat Proctor FLOYD documented as of this encounter Plan of Treatment Upcoming Encounters Date Type Department Care Team (Late st Contact Info) Description 06/28/2025 10:30 AM EST Office Visit [facility] MEDICINE [address] [place] [address] Thea Atkinson MD [address] [place] [address] 08/07/2025 3:30 PM EST Office Visit [facility] OPTOMETRY [address] [place], [place] [phone] Elizabeth Mckeon, OD [address] [place] [address] documented as of this encounter Visit Diagnoses Not on filedocumented in this encounter Additional Health Concerns Assessment Noted Time PHQ-9 Depression Total Score: 7 04/04/20 25 10:36 AM EDT documented as of this encounter Care Teams Visitor Services Information Assistant Relationship Specialty Start Date End Date Thea Atkinson MD [address] [place] [phone] PCP - General Internal Medicine 11/23/24 documented as of this encounter
--- OUTSIDE RECORDS SUMMARY | 2025-05-10 14:56 | XMS_ITS | Encounter Summary ---
Author Organization [employer] Address [address] [facility] 7t [place] [address] Care Team Providers Care General Warehouse Associate Name Role Phone Thea Atkinson MD Primary Care Provider + Reason for Visit * Reason Onset Date Comments Med Refill 01/14/2025 Encounter Details Date Type Department Care Team (Late st Contact Info) Description 01/14/2025 Refill [facility] MEDICINE [address] [place], [place] [phone] Thea Atkinson MD [address] [place], [place] [phone] Social History Tobacco Use Types Packs/Day Years [...] Description 06/28/2025 10:30 AM EST Office Visit [facility] MEDICINE [address] [place] [address] Thea Atkinson MD [address] [place] [address] 08/07/2025 3:30 PM EST Office Visit [facility] OPTOMETRY [address] [place] [address] Elizabeth Mckeon, OD [address] [place] [address] documented as of this encounter Visit Diagnoses Not on filedocumented in this encounter Care Teams General Warehouse Associate Relationship Specialty Start Date End Date Thea Atkinson MD [address] [place] [phone] PCP - General Internal Medicine 11/23/24 documented as of this encounter
--- OUTSIDE RECORDS SUMMARY | 2025-05-10 14:56 | XMS_ITS | Clinical Summary ---
Author Organization [employer] Address [address] [place] [address] 7[address] [place] [address] Care Team Providers Care Caustic Plant Worker Name Role Phone Thea Atkinson MD Primary Care Provider + Allergies Active Allergy Reactions Criticality Noted Date Comments Oxycodone-Acetaminophen Hives,Itching Medium 5 Medications * This document contains information received from the source organization and may not represent a complete record from that organization. Blood Pressure Monitoring (Blood Pressure Cuff) misc Use daily as prescribed 1 each 10/23/19 25 Active Ventolin HFA 108 (90 Base) MCG/ACT inhaler INHALE 2 PUFFS EVERY 6 HOURS IF NEEDED FOR WHEEZING. 18 g 2 11/16/19 25 Active fluticasone (Flonase) 50 MCG/ACT nasal spray Administer 1 spray into each nostril Once per day. 16 g 2 11/29/19 25 Active Tiotropium Addison (Spiriva HandiHaler) [address] 1 Inhalation into inhaler and inhale Once per day. 90 capsule 3 04/04/20 25 Active topiramate (Topamax) 25 MG tablet Take 1 tablet (25 mg) by mouth 2 times daily. 180 tablet 3 04/04/20 25 026 Active budesonide-fo rmoterol (Symbicort) 80-4.5 MCG/ACT inhaler Inhale 2 puffs in the morning and at bedtime. Rinse mouth with water after use to reduce aftertaste and incidence of candidiasis. Do not swallow. 1 each 11 04/04/20 25 026 Active Misc. Devices (Pulse Oximeter Deluxe) misc 1 Units Once per day. 1 each 04/04/20 25 Active albuterol 1.25 MG/3ML nebulizer solution Take 3 mL (1.25 mg) by nebulization every 6 (six) hours if needed for wheezing. 75 mL 3 04/04/20 25 026 Active ergocalcifero l (Vitamin D2) 1.25 MG (75897 UT) capsule Take 1 capsule (1.25 mg) by mouth 1 (one) time per week. 12 capsule 04/04/20 25 Active fexofenadine (Neris) 180 MG tablet Take 1 tablet (180 mg) by mouth if needed each day (Allergies). 90 tablet 1 04/16/20 25 026 Active fexofenadine (Neris) 180 MG tablet Take 1 tablet (180 mg) by mouth if needed each day (Allergies). 90 tablet 11/29/19 25 025 Discontinued(R eorder (will not trigger notification to Pharmacy)) neomycin-poly myxin-hydroco rtisone (Cortisporin) 3.5-78109-9 otic suspension Administer 3-4 drops into affected ear(s) 4 times daily for 10 days. 10 mL 04/16/20 025 Active Problems Problem Noted Date Diagnosed Date Vitamin D deficiency 04/16/2025 Assessment & Plan (04/16/2025 3:21 PM EDT): Started on vitamin D x 3 months Recheck vitamin D in 6 to 12 months Hyperlipidemia 04/16/2025 Assessment & Plan (04/16/2025 3:22 PM EDT): We discussed re rx options. Recommended moderate amount of exercise and increase consumption of fruit, vegetables, fish and high fiber foods. Should decrease consumption of highly saturated fats or trans fats. We discussed about weight reduction, she has been referred to dietitian IFG (impaired fasting glucose) 04/16/2025 Assessment & Plan (04/16/2025 3:21 PM EDT): A1c is at goal. I have discussed with patient regarding increasing physicial activity and decrease calorie intake, awaiting appointment with dietitian. Check A1c q6-12m FU in 6m Chronic obstructive pulmonary disease with uriel landeros 04/04/2025 Assessment & Plan (04/16/2025 3:25 PM EDT): - Previous desaturation on ambulation prior to start medication. She had significant improvement with Symbicort plus Spiriva inhalers, O2 sat is normal today at room air. - Continue Spiriva in the morning and Symbicort twice daily. - Referral to tubing mill operator was sent last week, they will call her for an appointment. If patient cannot be seen within 1 month, I will schedule an appointment with me to repeat 6-minute walk desaturation test, to determine need of oxygen for planned airplane trip - Monitor symptoms, especially O2 sat below 91%. She declined any immunization today, advised re influenza, COVID, RSV and PCV IZ especially prior to travel. - Follow-up in 1 to 2 mo hopefully before her trip Assessment & Plan (04/04/2025 3:32 PM EDT): Advanced with significant obstructive and restrictive defect. Patient also had exertional desaturation to 86% with 6-minute walking test. Will treat with 2 li O2 supplementation + albuterol updraft. DC fluticasone and switch to Symbicort twice daily + every 4 hours as needed shortness of breath + Spiriva daily Can use albuterol nebulizer every 4 hours as needed shortness of breath. I will prescribe a nebulizer so the patient can give yourself updraft to prevent ED visits She will monitor oxygen saturation with exertion or as needed shortness of breath. Referred to tubing mill operator. Advised to do exercise as tolerated, hold for headache, numbness, SOB, exertional chest pain, or extremity weakness. Avoid going to high altitudes including airplane travel until she is seen by tubing mill operator Generalized anxiety disorder 04/04/2025 Assessment & Plan (04/16/2025 3:20 PM EDT): Continue Topamax 25 mg and monitor for sedation, can increase to 25 mg twice daily/or 50 mg nightly if tolerated. Referral to in place We discussed about coping mechanism with anxiety, I will provide lorazepam prior to her plane trip, patient is aware that she should call at least 1 week in advance for this rx Follow-up with me in 3 months Assessment & Plan (04/04/2025 3:11 PM EDT): We discussed about coping mechanism with anxiety, prevention of trigger situations, distraction, CBT. Agreed to be referred to for counseling Will start Topamax 25 mg twice daily for anxiety, DC Wellbutrin She feels safe at home and is able to reach out for safety. Follow-up with me in 4 to 6 weeks Class 1 obesity due to exces s calories with serious comorbidity and body mass index (BMI) of 34.0 to 34.9 in adult 04/04/2025 Assessment & Plan (04/04/2025 3:10 PM EDT): Discussed re weight reduction options including exercise, life style modifications, diet. Recommended to decrease soda and sugary beverage consumption, increase protein intake with meals (at least 1 portion of protein with each meal) to assist with satiety, increase dietary fiber Recommended at least 150 min/week of moderate intensity exercise. Start Topamax 25 mg twice daily, hold for sedation and follow-up in 4 to 6 weeks to titrate up as tolerated. I will send a referral to dietitijesse TIJERINA (dyspnea on exertion) 04/04/2025 Assessment & Plan (04/04/2025 3:14 PM EDT): Most likely related to COPD, ordered echo Screening mammogram for breast cancer 12/25/2024 Seasonal [...] blood pressure reading 10/22/2024 Assessment & Plan (04/16/2025 3:19 PM EDT): No evidence of hypertension once bronchoconstriction and hypoxia have improved. Continue to monitor BP at home and reconsult as needed BP above 140/95 Assessment & Plan (12/25/2024 3:11 PM EDT): History of hypertension, Advised to check BP at home 3 times per week and follow-up with me in 6 weeks Counseled re low salt diet/increase moderate physical activity. Order labs Non smoking patient. Encounters * This document contains information received from the source organization and may not represent a complete record from that organization. Date Type Department Care Team Description 04/26/2025 Telephone [facility] [address] [place] [phone] Thea Atkinson MD Pulmonology appt 04/17/[address] [address] Thea Atkinson MD pulmonology appt 04/16/2025 9:45 AM EDT Office Visit [address] [address] Thea Atkinson MD Chronic obstructive pulmonary disease with emphysema, unspecified emphysema type (HCC) (Primary Dx); Generalized anxiety disorder; Vitamin D deficiency; Hyperlipidemia, unspecified hyperlipidemia type; IFG (impaired fasting glucose); Elevated blood pressure reading; Acute swimmer's ear of right side 04/16/2025 Travel 04/15/2025 Orders Only [address] [address] Courtney Goss MS 04/15/[address] [address] Thea Atkinson MD CHART PREP 04/15/[address] [address] Thea Atkinson MD 04/05/[address] [address] Thea Atkinson MD [facility] 04/04/2025 10:15 AM EDT Office Visit [address] [address] Thea Atkinson MD Chronic obstructive pulmonary disease with emphysema, unspecified emphysema type (HCC) (Primary Dx); Generalized anxiety disorder; Class 1 obesity due to excess calories with serious comorbidity and body mass index (BMI) of 34.0 to 34.9 in adult; TIJERINA (dyspnea on exertion); Dietary counseling; Exercise counseling 04/04/2025 Results Follow-Up [facility] [address] [place] [phone] Thea Atkinson MD Comprehensive Metabolic Panel, TSH with Reflex to Free T4, Vitamin D, 25-Hydroxy, Total, Immunoassay, Additional followed-up results: 3 04/04/2025 Travel 04/01/2025 Telephone [facility] [address] [place] [address] Thea Atkinson MD Chart prep 04/01/[address] [phone] Thea Atkinson MD Labs Only 03/15/[address] [phone] Thea Atkinson MD from Last 3 Months Social History Tobacco Use Types Packs/Day Years Used Date Smoking Tobacco: Former Cigarettes Smokeless Tobacco: Never Tobacco Cessation:Counseling Given: Not Answered Comments:06/21 ppd x 45y, quit 6mo ago. Quit [...] Sign Reading Time Taken Comments Blood Pressure 120/80 04/16/2025 10:00 AM EDT Pulse 75 04/16/2025 10:00 AM EDT Temperature 36.4 C (97.5 F) 04/16/2025 10:00 AM EDT Respiratory Rate 20 04/16/2025 10:00 AM EDT Oxygen Saturation 93% 04/16/2025 10:00 AM EDT Inhaled Oxygen Concentration - - Weight 93 kg (205 lb) 04/16/2025 10:00 AM EDT Height 165.7 cm (5' 5.25 ) 04/16/2025 10:00 AM E DT Body Mass Index 33.85 04/16/2025 10:00 AM EDT Plan of Treatment Upcoming Encounters Date Type Department Care Team (Late st Contact Info) Description 06/28/2025 10:30 AM EST Office Visit [facility] [address] [place] [address] Thea Atkinson MD [address] [place] [address] 08/07/2025 3:30 PM EST Office Visit [facility] [address] [place] [address] Elizabeth Mckeon, OD [address] [place] [address] Health Maintenance Due Date Last Done Comments CT Colonography 1965 Colonoscopy 1965 Colorectal Cancer Screening 1965 FIT DNA/Cologuard 1965 FIT 1965 FOBT 1965 HIV Screening 1965 Sigmoidoscopy 1965 Hepatitis C Screening 11/10/1981 DTaP/Tdap/Td Vaccines (1 - Tdap) 11/10/1982 Pneumococcal Vaccine: 50+ Years (1 of 2 - PCV) 11/10/1982 Pap Smear 11/10/1984 Cervical Cancer Screening 11/10/1993 HPV/Cotest 11/10/1993 RSV Patients and Patients Aged 60 years or older (1 - Risk 50-74 years 1-dose series) 11/10/2013 Zoster Vaccines (1 of 2) 11/10/2013 COVID-19 Vaccine (1 - 2024-2 6 season) 2025 Influenza Vaccine (#1) 2025 SDOH Screening 10/16/2025 10/16/2024 Mammogram 02/11/2026 02/11/2025 Alcohol/Substance Use Screening 04/04/2026 04/04/2025 Diabetes: Hemoglobin A1C 04/04/2026 04/04/2025 Disability Screening 04/04/2026 04/04/2025 Tobacco Screening 04/16/2026 04/16/2025 Depression Screening 04/17/2026 04/17/2025, 04/17/2025 Lipid Panel 04/04/2030 04/04/2025 HIB Vaccines Aged Out No longer eligi [...] Procedure Name Priority Date/Time Associated Diagnosis Comments CBC WITH AUTO DIFFERENTIAL Routine 04/04/2025 8:49 AM EDT Seasonal allergic rhinitis due to pollen HEMOGLOBIN A1C Routine 04/04/2025 8:49 AM EDT Elevated blood pressure reading LIPID PANEL WITH REFLEX TO DIRECT LDL Routine 04/04/2025 8:49 AM EDT Moderate persistent asthma without complication Elevated blood pressure reading VITAMIN D,25-OH,TOTAL,IA Routine 04/04/2025 8:49 AM EDT Moderate persistent asthma without complication TSH W/REFLEX TO FT4 Routine 04/04/2025 8 :49 AM EDT Elevated blood pressure reading COMPREHENSIVE METABOLIC PANEL Routine 04/04/2025 8:49 AM EDT Elevated blood pressure reading BI MAMMOGRAM SCREENING TOMOSYNTHESIS BILATERAL Routine 02/11/2025 4:24 PM EDT Screening mammogram for breast cancer from Last 3 Months Results * (ABNORMAL) Vitamin D, 25-Hydroxy, Total, Immunoassay (04/04/2025 8:49 AM EDT) Vitamin D 25-OH Total 26.7(L) >30 ng/mL [facility] Comment: Health Based Reference Values*< 20 ng/mL Pysllcyyr44-45 ng/mL Insufficient> 30 ng/mL Sufficient*Jacquie MORGAN. N Engl J Med. 2007;357:266-280There is no well-established upper level of normal vitamin Dlevels. Some laboratories use 50 ng/mL as an upper limit ofnormal. However, toxicity is patient-dependent and may occurat any level. Careful correlation with the patient'spresentation is necessary and, if there is concern forvitamin D toxicity, treatment should be consideredirrespective of the serum level.Care must be taken in interpreting Vitamin D results fromdifferent laboratories and methodologies. Published datademonstrated that results from patients undergoinghemodialysis may show a negative bias when tested withvarious automated 25-OH vitamin D assays when compared toLC-MS/MS.When testing samples from patients whose predominant form ofVitamin D is Vitamin D2, such as patients receiving VitaminD2 supplementation, results that are subtherapeutic shouldbe confirmed with another method such as LC-MS/MS. Blood 04/04/2025 8:49 AM EDT 04/04/2025 10:58 AM EDT us Thea Atkinson MD LAB BLOOD ORDERABLES Fin al Result Performing Organization Address [facility] Co de Phone Number [facility] [address] [place] [phone] * TSH with Reflex to Free T4 (04/04/2025 8:49 AM EDT) TSH reflex Free T4 0.71 0.32 - 4.0 uIU/mL [facility] Blood 04/04/2025 8:49 AM EDT 04/04/2025 10:58 AM EDT us Thea Atkinson MD LAB BLOOD ORDERABLES Fin al Result Performing Organization Address [facility] Co de Phone Number [facility] [address] [place] [phone] * (ABNORMAL) Lipid Panel with Reflex to Direct LDL (04/04/2025 8:49 AM EDT) Triglycerides 86 <150 mg/dL [facility] Comment:Desirable Triglyceri de: less than 150 mg/dLBorderline High Triglyceride 150-199 mg/dLHigh Triglyceride: 200-499 mg/dLVery High Triglyceride: greater than or equal to 5OO mg/dL Cholesterol 178 <200 mg/dL [facility] Comment:Desirable Cholestero l: less than 200 mg/dLBorderline High Cholesterol: 200-239 mg/dLHigh Cholesterol: greater than 239 mg/dL LDL Cholesterol Calculated 110(H) <100 mg/dL [facility] Comment:Desirable LDL: less than 100 mg/dLNear Optimal/Above Optimal LDL: 110- 129 mg/dLBorderline High LDL: 130-159 mg/dLHigh LDL: 160-189 mg/dLVery High LDL: greater than or equal to 190 mg/dL HDL Cholesterol 51 >40 mg/dL [facility] Comment:Desirable HDL: great er than 40 mg/dL Note: This HDL assay may give artificially low results in patients with liver disease. Blood 04/04/2025 8:49 AM EDT 04/04/2025 10:58 AM EDT us Thea Atkinson MD LAB BLOOD ORDERABLES Fin al Result [facility] [address] [place] [phone] [phone] * (ABNORMAL) CBC auto differential (04/04/2025 8:49 AM EDT) White Blood Count 6.3 4.8 - 10.8 X10*3/uL [facility] Red Blood Count 5.18 4.20 - 5.50 X10*6/uL [facility] Hemoglobin 16.3(H) 12.0 - 16.0 g/dl [facility] Hematocrit 50.0(H) 37.0 - 47.0 % [facility] Mean Corpuscular Volume 96.5 80.0 - 98.0 fL [facility] Mean Corpuscular Hemoglobin 31.5 27.0 - 33.0 pg [facility] Mean Corpuscular HGB Conc 32.6 31.0 - 35.0 g/dl [facility] Red Cell Distribution Width 12.7 11.0 - 16.0 % [facility] Platelet Count 276 160 - 400 X10*3/uL [facility] Mean Platelet Volume 8.5(L) 9.4 - 12.3 fL [facility] Neutrophils Percent Auto 68.9 45 - 73 % [facility] Imm Gran Pct Auto 0.5(H) 0.0 - 0.4 % [facility] Lymphocytes Percent Auto 17.8(L) 20 - 40 % [facility] Monocytes Percent Auto 9.4 2 - 11 % [facility] Eosinophils Percent Auto 2.6 0 - 4 % [facility] Basophils Percent Auto 0.8 0 - 2 % [facility] NRBC Pct Auto 0.0 0.0 - 0.2 /100WBC [facility] Neutrophils Absolute Auto 4.3 2.0 - 8.3 x10*3/uL [facility] Imm Gran Abs Auto 0.03 0.00 - 0.03 X10*3/uL [facility] Lymphocytes Absolute Auto 1.1(L) 1.2 - 4.9 X10*3/uL [facility] Monocytes Absolute Auto 0.6 0.1 - 1.2 X10*3/uL [facility] Eosinophils Absolute Auto 0.2 0.0 - 0.4 X10*3/uL [facility] Basophils Absolute Auto 0.1 0.0 - 0.2 X10*3/uL [facility] NRBC Abs Auto 0.000 0.0 - 0.012 X10*3/uL [facility] Blood Venous blood specimen / Unknown 04/04/2025 8:49 AM EDT 04/04/2025 10:58 AM EDT us Thea Atkinson MD LAB BLOOD ORDERABLES Fin al Result [facility] [address] [place] [phone] * (ABNORMAL) Hemoglobin A1c (04/04/2025 8:49 AM EDT) Hemoglobin A1c 6.1(H) <6.0 % [facility] Comment:Hemoglobin A1C Refer ence Range Adults: 4.8 - 6.0 % Non diabetic: < 6.0 % Goal: < 7.0 %Additional Action Suggested: > 8.0 %Note: Hemoglobin A1c results are invalid for patients with abnormal amounts of HbF. Blood transfusions may impact the HbA1c concentration in the patient sample. Estimated Average Glucose 128 mg/dL [facility] Comment:eAG = Estimated ave rage glucose which is %A1C expressed asaverage glucose, using the formula of the [id number] Glucose study (ADAG), Diabetes Care, Vol.31,#8,Jan. 2007 Blood Venous blood specimen / Unknown 04/04/2025 8:49 AM EDT 04/04/2025 10:58 AM EDT us Thea Atkinson MD LAB BLOOD ORDERABLES Fin al Result [facility] [address] [place] [phone] * (ABNORMAL) Comprehensive Metabolic Panel (04/04/2025 8:49 AM EDT) Sodium 143 135 - 145 mmol/L [facility] Potassium 4.3 3.3 - 5.1 mmol/L [facility] Chloride 105 96 - 108 mmol/L [facility] Carbon Dioxide 31(H) 22 - 29 mmol/L [facility] Anion Gap 11(L) 12 - 20 [facility] Urea Nitrogen (BUN) 12 9 - 16 mg/dL [facility] Creatinine, Serum 0.55 0.5 - 1.4 mg/dL [facility] Estimated Glomerular Filt Rate >60 [facility] Comment:Chronic Kidney Disea se: Estimated GFR < 60 mL/min/[id number] Kidney Disease: Estimated GFR < 15 mL/min/1.73m2 Glucose 97 60 - 115 mg/dL [facility] Calcium 9.2 8.4 - 10.2 mg/dL [facility] Bilirubin, Total 0.4 0.0 - 1.0 mg/dL [facility] Aspartate Amino Transferase 19 5 - 31 U/L [facility] Alanine Aminotransferase 18 0 - 31 U/L [facility] Total Protein 7.2 6.5 - 8.0 g/dL [facility] Albumin Level 4.4 3.5 - 5.0 g/dL [facility] Alkaline Phosphatase 52 39 - 117 U/L [facility] Blood Venous blood specimen / Unknown 04/04/2025 8:49 AM EDT 04/04/2025 10:58 AM EDT Thea Atkinson MD LAB BLOOD ORDERABLES Fin al Result [facility] [address] [place] [phone] * BI Mammogram Screening Tomosynthesis Bilateral (02/11/2025 4:24 PM EDT) Anatomical Region Laterality Modality Breast Bilateral Mammography 02/11/2025 4:24 PM EDT Narrative 02/15/2025 7:27 PM EDT [address] [place] [address] Mammography Report Signed Patient: Neli Ingram MR#: [id number] : 1965 Acct:[id number] Age/Sex: 59 / F ADM Date: 02/11/25 Loc: HO.MAMMO Attending Dr: Thea Atkinson MD Ordering Physician: Thea Atkinson MD Results: 1Ne gative Date of Service: 02/11/25 Follow Up: 1 Year From [facility] Mammogram Procedure(s): MM tomosynthesis screening BI Accession Number(s): [id number] cc: Thea Atkinson MD EXAMINATION: MM SCREENING [...] 02/15/25 1923 DD/ 1624 TD/TT: 02/11/25 1644 Top Dyeing Machine Loader: Procedure Note Donotuseinterpreter, Image - 02/15/2025 [facility] [address] [place] [address] Mammography Report Signed Patient: Neli Ingram MMR#: [id number] : 1965Acct:[id number] Age/Sex: 59 / FADM Date: 02/11/25 Loc: .MAMMO Attending Dr: Thea Atkinson MD Ordering Physician: Thea Atkinson MDResults: 1Ne gative Date of Service: 02/11/25Follow Up: 1 Year From [facility] Mammogram Procedure(s): MM tomosynthesis screening BI Accession Number(s): [id number] cc: Thea Atkinson MD EXAMINATION: MM SCREENING [...] Peraza MD in OV> 02/15/25 1923 DD/ 162 TD/TT: 02/11/25 1644 Top Dyeing Machine Loader: Thea Atkinson MD IMG BI PROCEDURES Final Result from Last 3 Months Insurance [facility] C3 Care Teams Caustic Plant Worker Relationship Specialty Start Date End Date Thea Atkinson MD [address] [place] [address] PCP - General Internal Medicine 11/23/24
--- OUTSIDE RECORDS SUMMARY | 2025-05-10 14:56 | XMS_ITS | Encounter Summary ---
Author Organization [employer] Address [address] [place] [address] Care Team Providers Care Jig Hand Name Role Phone Thea Atkinson MD Primary Care Provider + Encounter Details Date Type Department Care Team (Late st Contact Info) Description 04/15/2025 Orders Only [facility] [address] [place] [address] [place], [place] Social History Tobacco Use Types Packs/Day Years [...] edge 3 04/17/2025 4:18 PM EDT Lupe Proctor, LEIGH ANN Not being able to stop or control worrying 3 04/17/2025 4:18 PM EDT Lupe Proctororia, LEIGH ANN Worrying too much about different things 3 04/17/2025 4:18 PM EDT Lupe Proctor, LEIGH ANN Trouble relaxing 3 04/17/2025 4:18 PM EDT Nighat Henderson LMHC Being so restless that it is hard to sit still 3 04/17/2025 4:18 PM EDLupe Mcmillan, LEIGH ANN Becoming easily annoyed or irritable 3 04/17/2025 4:18 PM EDT Lupe ProctororiaLEIGH ANN Feeling afraid as if something awful might happen 3 04/17/2025 4:18 PM Nighat Hart Ba, LMHC PERCY-7 Total Score 21 04/17/2025 4:18 PM EDT Vega Bazalar, Nighat, LMHC documented as of this encounter Plan of Treatment Upcoming Encounters Date Type Department Care Team (Late st Contact Info) Description 06/28/2025 10:30 AM EST Office Visit [facility] [address] [place] [address] Thea Atkinson MD [address] [place] [address] 08/07/2025 3:30 PM EST Office Visit [facility] [address] [place], [place] [phone] TarkaElizabeth, OD [address] [place] [address] documented as of this encounter Visit Diagnoses Not on filedocumented in this encounter Additional Health Concerns Assessment Noted Time PHQ-9 Depression Total Score: 7 04/04/20 10:36 AM EDT documented as of this encounter Care Teams Jig Hand Relationship Specialty Start Date End Date Thea Atkinson MD [address] [place] [phone] PCP - General Internal Medicine 11/23/24 documented as of this encounter
--- OUTSIDE RECORDS SUMMARY | 2025-05-10 14:56 | XMS_ITS | Encounter Summary ---
Author Organization [employer] Address [address] [place] [address] Care Team Providers Care Textile Examiner Name Role Phone Thea Atkinson MD Primary Care Provider + Encounter Details Date Type Department Care Team (Latest Contact Info) Description 04/04/2025 Results Follow-Up [facility] MEDICINE [address] [place], [place] [phone] Thea Atkinson MD [address] [place] [address] Comprehensive Metabolic Panel, TSH with Reflex to Free T4, Vitamin D, 25-Hydroxy, Total, Immunoassay, Additional followed-up results: 3 Social History Tobacco Use Types Packs/Day Years Used Date Smoking Tobacco: Former Cigarettes Smokeless Tobacco: Never Comments:1/2 ppd x 43y, quit 6mo ago. Quit 1 yr ago 2023 Alcohol Use Standard Drinks/Week Comments Yes 0 (1 standard drink = 0.6 oz pur e alcohol) Depression Answer Date Recorded Patient Health Questionnaire-9 Score 7 04/04/2025 Patient Health Questionnaire-9 Score 7 04/04/2025 Last PHQ-9: Questionnaire Data Not on file [...] Date Recorded Patient Health Questionnaire-2 Score 2 04/04/2025 Internet Access Answer Date Recorded Internet Access [...] Answer Date of Assessment Author Patient Health Questionnaire -2 Score 2 04/04/2025 10:36 AM EDT Courtney Goss MA * Little interest or pleasure in doing things Answer Date of Assessment Author Several days 04/04/2025 10:36 AM EDT Courtney Goss MA * Feeling down, depressed, or hopeless Answer Date of Assessment Author Several days 04/04/2025 10:36 AM EDT Courtney Goss MA * Trouble falling or staying asleep, or sleeping too much Answer Date of Assessment Author Several days 04/04/2025 10:36 AM EDT Courtney Goss MA * Feeling tired or having little energy Answer Date of Assessment Author Nearly every day 04/04/2025 10:36 AM EDT Courtney Goss MA * Poor appetite or overeating Answer Date of Assessment Author Not at all 04/04/2025 10:36 AM EDT Courtney Goss MA * Feeling bad about yourself - or that you are a failure or have let yourself or your family down Answer Date of Assessment Author Not at all 04/04/2025 10:36 AM EDT Courtney Goss MA * Trouble concentrating on things, such as reading the newspaper or watching television Answer Date of Assessment Author Not at all 04/04/2025 10:36 AM EDT Courtney Goss MA * Moving or speaking so slowly that other people could have noticed? Or the opposite - being so fidgety or restless that you have been moving around a lot more than usual. Answer Date of Assessment Author Several days 04/04/2025 10:36 AM EDT Courtney Goss MA * Thoughts that you would be better off or hurting yourself in some way Answer Date of Assessment Author Not at all 04/04/2025 10:36 AM EDT Courtney Goss MA * Patient Health Questionnaire-9 Score Answer Date of Assessment Author 7 04/04/2025 10:36 AM EDT Courtney Goss MA * Over the last 2 weeks, how often have you been bothered by any of the following problems? Question Answer Date of Assessment Author Feeling nervous, anxious, or on edge 3 04/04/2025 10:37 AM EDT Courtney Gsos MA Not being able to stop or co ntrol worrying 2 04/04/2025 10:37 AM EDT Courtney Goss MA Worrying too much about diff erent things 2 04/04/2025 10:37 AM EDT Courtney Goss MA Trouble relaxing 3 04/04/2025 10:37 AM EDT Courtney Goss MA Being so restless that it is hard to sit still 3 04/04/2025 10:37 AM EDT Courtney Goss MA Becoming easily annoyed or irritable 3 04/04/2025 10:37 AM EDT Courtney Goss MA Feeling afraid as if somethi ng awful might happen 3 04/04/2025 10:37 AM EDT Courtney Goss MA PERCY-7 Total Score 19 04/04/2025 10:37 AM EDT Courtney Goss MA documented as of this encounter Miscellaneous Notes * Result Encounter Note - Thea Atkinson MD - 04/04/2025 3:36 PM EDT Labs on 04/04/2025 showed that patient has low vitamin D levels, mild hyperlipidemia and prediabetes (A1c of 6.1). Please call patient and tell her that she is to continue POC as discussed regarding obesity, weight reduction and refer to dietitian + start Topamax. I will start her on vitamin D suppl ementation x 3 months and follow-up with her as recommended. We had already discussed about high H&H levels, due to chronic hypoxemia. documented in this encounter Plan of Treatment Upcoming Encounters Date Type Department Care Team (Late st Contact Info) Description 06/28/2025 10:30 AM EST Office Visit [facility] MEDICINE [address] [place] [address] Thea Atkinson MD [address] [place], [place] [phone] 08/07/2025 3:30 PM EST Office Visit [facility] OPTOMETRY [address] [place], [place] [phone] TarkaElizabeth, OD [address] [place] [address] documented as of this encounter Visit Diagnoses Not on filedocumented in this encounter Additional Health Concerns Assessment Noted Time PHQ-9 Depression Total Score: 7 04/04/20 25 10:36 AM EDT documented as of this encounter Care Teams Textile Examiner Relationship Specialty Start Date End Date Thea Atkinson MD [address] [place] [address] PCP - General Internal Medicine 11/23/24 documented as of this encounter
--- OUTSIDE RECORDS SUMMARY | 2025-05-10 14:56 | XMS_ITS | Encounter Summary ---
Author Organization [employer] Address [address] [place] [address] Care Team Providers Care Furniture Mover Helper Name Role Phone Thea Atkinson MD Primary Care Provider + Reason for Visit * Reason Comments Med Refill Encounter Details Date Type Department Care Team ([facility] st Contact Info) Description 01/13/2025 Refill [facility] MEDICINE [address] [place], [place] [phone] Thea Atkinson MD [address] [place], [place] [phone] Social History Tobacco Use Types Packs/Day Years [...] Description 06/28/2025 10:30 AM EST Office Visit [facility] MEDICINE [address] [place] [address] Thea Atkinson MD [address] [place] [address] 08/07/2025 3:30 PM EST Office Visit [facility] OPTOMETRY [address] [place] [address] Elizabeth Mckeon, OD [address] [place] [address] documented as of this encounter Visit Diagnoses Not on filedocumented in this encounter Care Teams Furniture Mover Helper Relationship Specialty Start Date End Date Thea Atkinson MD [address] [place] [id number] PCP - General Internal Medicine 11/23/24 documented as of this encounter
== END ==
LOC: HO.CARD 14:37
PROVIDERS: PCP Internal Medicine; Visit Provider Internal Medicine
DX: R06.09 Other forms of dyspnea (principal)
CPT/HCPCS: 93306

== ENCOUNTER → 2025-05-10 14:41 | Outpatient (BNV) | payer MEDICAID, SELFPAY | PROVIDERS: PCP Internal Medicine; Visit Provider Internal Medicine | DX: R06.09 Other forms of dyspnea (principal); I51.7 Cardiomegaly | CPT/HCPCS: 93306 ==

== ENCOUNTER 2025-05-15 11:16 | Outpatient (REF) | payer MEDICAID, SELFPAY ==
[2025-05-15 14:34] LABS: MANUAL DIFF FLAG NO
[2025-05-15 14:37] LABS: Hematocrit 47.6 % (37.0-47.0); Hemoglobin 15.8 g/dl (12.0-16.0); Imm Gran Abs Auto 0.02 X10*3/uL (0.00-0.03); Imm Gran Pct Auto 0.3 % (0.0-0.4); Lymphocytes Absolute Auto 1.6 X10*3/uL (1.2-4.9); Mean Corpuscular HGB Conc 33.2 g/dl (31.0-35.0); Mean Corpuscular Hemoglobin 31.5 pg (27.0-33.0); Mean Corpuscular Volume 94.8 fL (80.0-98.0); NRBC Abs Auto 0.000 X10*3/uL (0.0-0.012); NRBC Pct Auto 0.0 /100WBC (0.0-0.2); Platelet Count 334 X10*3/uL (160-400); Red Blood Count 5.02 X10*6/uL (4.20-5.50); White Blood Count 7.6 X10*3/uL (4.8-10.8)
[2025-05-18 07:19] LABS: Class Alternaria alternata 0/1; Class Aspergillus fumigatus 0; Class Bermuda Grass 0; Class Birch 3; Class Cat Dander 3; Class Cladosporium herbarum 0; Class Cockroach 0; Class Common Ragweed 0; Class Cottonwood 0; Class Derm. pterony 2; Class Dermatophagoides farinae 2; Class Dog Dander 2; Class Elm 0; Class Maple Box Elder 0; Class Mountain Cedar 0; Class Mouse Urine Protein 2; Class Mugwort 0; Class Oak 0/1; Class Penicillium crysogenum 0; Class Rough Pigweed 0; Class Sheep Sorrel 0; Class Sycamore 0; Class Timothy Grass 0; Class Walnut Tree 0; Class White Ash 0/1; Class White Mulberry 0; D002 - IgE D farinae 0.93 kU/L; E001 - IgE Cat Dander 4.57 kU/L; E005 - IgE Dog Dander 2.40 kU/L; G006 - IgE Timothy Grass <0.10 kU/L; I006-IgE Cockroach, German <0.10 kU/L; M002 - IgE Cladosporium herbar <0.10 kU/L; M003 - IgE Aspergillus fumigat <0.10 kU/L; M006 - IgE Alternaria alternat 0.27 kU/L; T001 IgE Maple/Box Elder <0.10 kU/L; T006 - IgE Cedar, Mountain <0.10 kU/L; T007 - IgE Oak, White 0.13 kU/L; T008 IgE Elm, American <0.10 kU/L; T010 - IgE Walnut <0.10 kU/L; T011 - IgE Maple Leaf Sycamore <0.10 kU/L; T014 - IgE Cottonwood <0.10 kU/L; T015 - IgE Ash, White 0.10 kU/L; T070 - IgE White Mulberry <0.10 kU/L; W001 - IgE Ragweed, Short <0.10 kU/L; W006 - IgE Mugwort <0.10 kU/L; W014 IgE Pigweed, Common <0.10 kU/L; W018 IgE Sheep Sorrel <0.10 kU/L
== END 2025-05-15 11:17 | disposition home or self-care (01) ==
LOC: HO.WFDLDS 11:16
PROVIDERS: PCP Internal Medicine; Referring Provider Internal Medicine; Visit Provider Nurse Practitioner Family
DX: J44.89 Other specified chronic obstructive pulmonary disease (principal); Z91.09 Other allergy status, other than to drugs and biological substances; Z87.891 Personal history of nicotine dependence
CPT/HCPCS: 36415; 82785; 85025; 86003; 99212

== ENCOUNTER 2025-05-15 11:16 | Outpatient (AMB) | payer MEDICAID, SELFPAY ==
--- NOTE | 2025-05-15 11:18 | A.OFFVIS_ITS ---
Vital Signs 05/15/25 11:19 Height 5 ft 4 in Weight 204 lb 6 oz BMI 35.1 BP 110/72 Blood Pressure Location Rt brachial Position Sitting Pulse 72 Pulse Source Pulse Oximeter Pulse Oximetry (%) 93 Oxygen Delivery Method Room Air Intake Visit Reasons: COPD/Emphysema Allergies acetaminophen (From Percocet) Allergy (Intermediate, Verified 05/15/25 11:25) Difficulty Swallowing oxycodone (From Percocet) Allergy (Intermediate, Verified 05/15/25 11:25) Difficulty Swallowing HPI HPI COPD/Emphysema: Details: Neli is a pleasant 59-year-old female, former 30 pack year smoker, quit March 2024, with underlying asthma and COPD. She was referred by PCP for pulmonary evaluation. She was newly diagnosed [facility] COPD in November following PFT which demonstrated combined severe obstructive and restrictive ventilatory defects with positive bronchodilator response an slightly decreased diffusion capacity suggests emphysema, DLCO 78%. She denies any recent imaging. The patient also has a history of asthma, which developed after the of the patient's twins. Prior to starting Symbicort and Spiriva, the patient was treated with albuterol and Flovent, which provided no relief from dyspnea, particularly with exertion such as climbing stairs. The current treatment with Symbicort and Spiriva has led to a noticeable improvement in symptoms within a week, allowing the patient to climb stairs without becoming breathless. Despite improvement, the patient continues to experience a random dry cough, occasional chest tightness, wheezing, and shortness of breath a couple of times per week. The patient has a significant smoking history, having smoked approximately a pack of cigarettes per day from the age of 13 until quitting in March of the previous year. There was also secondhand smoke exposure in the house during childhood. The patient's father had COPD and lung cancer. 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 She endorses seasonal allergies, denies any recent allergy testing. She also reports symptoms suggestive of LOU however would like to hold off on home sleep study at this time. [facility] Social History (Updated 05/15/25 @ 11:24 by Manju Slater CMA) Patient Tobacco Use Status: Former Tobacco user Review of Systems Const Denies chills, Denies excessive sweating, Denies fever(s), Denies headache(s) and Denies night sweats Eyes Denies dry eyes, Denies irritation and Denies itchy eyes ENT Reports Normal hearing present, Denies headache(s) and Denies sore throat Card Denies chest pain, Denies chest pain at rest, Denies chest pain with activity, Denies claudication, Denies leg edema, Denies dyspnea, Denies orthopnea and Denies paroxysmal nocturnal dyspnea Resp Denies chest congestion, Denies excessive phlegm production, Denies pain on inspiration, Denies pain with cough, Denies dyspnea and Denies stridor Musc Denies myalgias Neuro Reports Normal hearing present and Denies headache(s) Endo Denies excessive sweating Javier/Lymph Denies lymphadenopathy Aller/Immun Denies itchy eyes and Denies seasonal rhinorrhea Physical Exam Vital Signs: Last Vital Signs Pulse 72 05/15/25 11:19 BP 110/72 05/15/25 11:19 Pulse Ox 93 05/15/25 11:19 Oxygen Delivery Method Room Air 05/15/25 11:19 BMI result Body Mass Index 35.1 Const General: cooperative, healthy appearing, comfortable, no acute distress, well developed and alert Nutritional Appearance: obese Orientation/consciousness: patient oriented x3 Limitations: no limitations HEENT Head: Yes normal to inspection, Yes normocephalic and Yes atraumatic Ears: hearing grossly normal bilaterally and external ears normal Eyes General: appearance normal, both eyes and all related structures Eyelids: Yes eyelids normal Sclerae: sclerae normal EOM: EOMs intact bilaterally Neck Neck: Yes normal visual inspection and Yes no lymphadenopathy Lymphatic: no lymphadenopathy noted Chest Chest palpation & inspection: normal inspection of the chest Resp Effort & Inspection: normal respiratory effort, able to speak in complete sentences, no audible wheezes, no cough, no stridor, not tachypneic, no tripod p ositioning and no use of accessory muscles Auscultation: diminished lung sounds Cardio Jugular venous distension: no JVD Rate: regular rate Rhythm: regular rhythm Skin Other: warm, dry General skin exam: no rashes or lesions noted Neuro General: patient oriented x3 Cranial nerves: Yes Normal hearing present Cognition (Neuro): normal cognition Gait exam (Neuro): Normal gait present Extrem General: Yes normal to inspection, Yes capillary refill normal, Yes no clubbing, cyanosis or edema and Yes no pedal edema Psych Appearance: grossly normal and well kempt Speech and movement: Normal speech and movement present and Clear speech present Affect: normal affect Attitude: cooperative Thought process: Normal thought process present Thought content: Normal thought content present Insight: Good insight present (Psych) Judgement: Good judgement present (Psych) Assessment & Plan Assessment & Plan (1) COPD (chronic obstructive pulmonary disease): Code(s): J44.9 - Chronic obstructive pulmonary disease, unspecified Category: Medical (2) Asthma: Code(s): J45.909 - Unspecified asthma, uncomplicated Category: Medical (3) Personal history of tobacco use: Code(s): Z87.891 - Personal history of nicotine dependence Category: Social Hx (4) Environmental allergies: Code(s): Z91.09 - Other allergy status, other than to drugs and biological substances Category: Medical Plan The patient presents with severe COPD, as evidenced by a pre-bronchodilator FEV1/FVC ratio of 54% on a recent PFT. There is a significant reversible component, notably a 63% improvement in small airways post-albuterol, suggesting an asthma component. Patient reports suboptimal control on current regimen, will switch to Trelegy. She also has nebulized solution at home however no nebulizer, will send nebulizer for home use PRN. Will send for chest x-ray today, with plan to order chest CT given significant smoking history and abnormal findings on PFT, which could be suggestive of underlying parenchymal conditions such as ILD. Discussed need for lung screening which she was agreeable to. Also send for RAST to assess for an allergic component. She reports symptoms suggestive of sleep apnea however would like to hold off on testing at this time, we will consider in the future. All questions were answered and patient is in agreement of plan. Will follow-up in 6-8 weeks or sooner if needed. Orders: Orders XR chest 2V Today R06.00 - Dyspnea, unspecified Resp Allergy Profile Region I Today Z91.09 - Other allergy status, other than to drugs and biological substances Immunoglobulin E Today Z91.09 - Other allergy status, other than to drugs and biological substances Complete Blood Count Auto Diff Today Z91.09 - Other allergy status, other than to drugs and biological substances CT chest wo IV con Today R94.2 - Abnormal results of pulmonary function studies Medications: New rwkdjjihhee-puewtgwqi-hulxeaeg 200-62.5-25 mcg (Trelegy Ellipta) 1 inh inhalation DAILY 60 ea 3RF albuterol sulfate 90 mcg/actuation 2 puffs inhalation Q4-6H PRN 1 ea 0RF shortness of breath or wheezing Coding Level of Care Code New Pt Level 4 (29560) Diagnoses COPD (chronic obstructive pulmonary disease) J44.9 Asthma J45.909 Personal history of tobacco use Z87.891 Environmental allergies Z91.09
[2025-05-15 11:19] VITALS: BP 110/72; PULSE 72; O2SAT 93; BMI 35.1
--- OUTSIDE RECORDS SUMMARY | 2025-05-15 14:03 | XMS_ITS | Encounter Summary ---
Author Organization [employer] Address [address] [place] [address] Care Team Providers Care Customer Operations Specialist Name Role Phone Thea Atkinson MD Primary Care Provider + Encounter Details Date Type Department Care Team (Latest Contact Info) Description 04/04/2025 Results Follow-Up [facility] MEDICINE [address] [place], [place] [phone] Thea Atkinson MD [address] [place] [address] Comprehensive Metabolic Panel, TSH with Reflex to [...] edge 3 04/04/2025 10:37 AM EDT Courtney Goss MA Not being able to stop or [...] Description 06/28/2025 10:30 AM EST Office Visit [facility] MEDICINE [address] [place] [address] Thea Atkinson MD [address] [place] [address] 08/07/2025 3:30 PM EST Office Visit [facility] OPTOMETRY [address] [place] [address] TarElizabeht solo, OD [address] [place] [address] 08/08/2025 3:00 PM EST Nutrition [facility] CHC DIABETES/NTRN [address] [place], [place] [phone] Deysi Tolentino, RD [address] [place] [address] documented as of this encounter Visit Diagnoses Not on filedocumented in this encounter Additional Health Concerns Assessment Noted Time PHQ-9 Depression Total Score: 7 04/04/20 25 10:36 AM EDT documented as of this encounter Care Teams Customer Operations Specialist Relationship Specialty Start Date End Date Thea Atkinson MD [address] [place] [address] PCP - General Internal Medicine 11/23/24 documented as of this encounter
--- OUTSIDE RECORDS SUMMARY | 2025-05-15 14:03 | XMS_ITS | Encounter Summary ---
Author Organization [employer] Address [address] [place] [address] Care Team Providers Care Machine Tank Operator Name Role Phone Thea Atkinson MD Primary Care Provider + Reason for Visit * Reason Onset Date Comments Med Refill 04/15/2025 Encounter Details Date Type Department Care Team (Late st Contact Info) Description 04/15/2025 Refill [facility] MEDICINE [address] [place], [place] [phone] Thea Atkinson MD [address] [place], [place] [phone] Social History Tobacco Use Types Packs/Day Years [...] 3 04/17/2025 4:18 PM EDT Nighat Tracey Ba [facility] PERCY-7 Total Score 21 04/17/2025 4:18 PM EDT Nighat Proctor [facility] documented as of this encounter Plan of Treatment Upcoming Encounters Date Type Department Care Team (Late st Contact Info) Description 06/28/2025 10:30 AM EST Office Visit [facility] MEDICINE [address] [place] [address] Thea Atkinson MD [address] [place] [address] 08/07/2025 3:30 PM EST Office Visit [facility] OPTOMETRY [address] [place], [place] [phone] Elizabeth Mckeon, OD [address] [place] [address] 08/08/2025 3:00 PM EST Nutrition [facility] CHC DIABETES/NTRN [address] [place], [place] [phone] Deysi Tolentino, RD [address] [place] [address] documented as of this encounter Visit Diagnoses Not on filedocumented in this encounter Additional Health Concerns Assessment Noted Time PHQ-9 Depression Total Score: 7 04/04/20 25 10:36 AM EDT documented as of this encounter Care Teams Machine Tank Operator Relationship Specialty Start Date End Date Thea Atkinson MD [address] [place] [address] PCP - General Internal Medicine 11/23/24 documented as of this encounter
--- OUTSIDE RECORDS SUMMARY | 2025-05-15 14:03 | XMS_ITS | Encounter Summary ---
Author Organization [employer] Address [address] [facility] [address]t [place] [address] Care Team Providers Care Public Address Announcer Name Role Phone Thea Atkinson MD Primary Care Provider + Reason for Visit * Reason Onset Date Comments Med Refill 01/14/2025 Encounter Details Date Type Department Care Team (Late st Contact Info) Description 01/14/2025 Refill [facility] MEDICINE [address] [place], [place] [phone] Thea Atkinson MD [address] [place], [place] [phone] Social History Tobacco Use Types Packs/Day Years [...] Description 06/28/2025 10:30 AM EST Office Visit [facility] MEDICINE [address] [place] [address] Thea Atkinson MD [address] [place] [address] 08/07/2025 3:30 PM EST Office Visit [facility] OPTOMETRY [address] [place] [address] Elizabeth Mckeon, OD [address] [place] [address] 08/08/2025 3:00 PM EST Nutrition [facility] CHC DIABETES/NTRN [address] [place] [address] Deysi Tolentino, RD [address] [place] [address] documented as of this encounter Visit Diagnoses Not on filedocumented in this encounter Care Teams Public Address Announcer Relationship Specialty Start Date End Date Thea Atkinson MD [address] [place] [address] PCP - General Internal Medicine 11/23/24 documented as of this encounter
--- OUTSIDE RECORDS SUMMARY | 2025-05-15 14:03 | XMS_ITS | Encounter Summary ---
Author Organization [employer] Address [address] [place] [address] Care Team Providers Care Retail Support Manager Name Role Phone Thea Atkinson MD Primary Care Provider + Encounter Details Date Type Department Care Team (Late st Contact Info) Description 04/15/2025 Orders Only [facility] MEDICINE [address] [place] [address] [place], [place] Social History Tobacco Use Types Packs/Day [...] Description 06/28/2025 10:30 AM EST Office Visit [facility] MEDICINE [address] [place] [address] Thea Atkinson MD [address] [place] [address] 08/07/2025 3:30 PM EST Office Visit [facility] OPTOMETRY [address] [place] [address] Tarka, Elizabeth, OD [address] [place] [address] 08/08/2025 3:00 PM EST Nutrition [facility] CHC DIABETES/NTRN [address] [place], [place] [phone] Deysi Tolentino, RD [address] [place] [address] documented as of this encounter Visit Diagnoses Not on filedocumented in this encounter Additional Health Concerns Assessment Noted Time PHQ-9 Depression Total Score: 7 04/04/20 25 10:36 AM EDT documented as of this encounter Care Teams Retail Support Manager Relationship Specialty Start Date End Date Thea Atkinson MD [address] [place] [address] PCP - General Internal Medicine 11/23/24 documented as of this encounter
--- OUTSIDE RECORDS SUMMARY | 2025-05-15 14:03 | XMS_ITS | Encounter Summary ---
Author Organization [employer] Address [address] [facility] [address]t [place] [address] Care Team Providers Care Humanities Coordinator Name Role Phone Thea Atkinson MD Primary Care Provider + Reason for Visit * Reason Comments Med Refill Encounter Details Date Type Department Care Team ([facility] st Contact Info) Description 01/13/[address] [facility] MEDICINE [address] [place], [place] [phone] Thea Atkinson MD [address] [place], [place] [phone] Social History Tobacco Use Types Packs/Day Years [...] Description 06/28/2025 10:30 AM EST Office Visit [facility] MEDICINE [address] [place] [address] Thea Atkinson MD [address] [place] [address] 08/07/2025 3:30 PM EST Office Visit [facility] OPTOMETRY [address] [place] [address] Elizabeth Mckeon, OD [address] [place] [address] 08/08/2025 3:[address] [facility] CHC DIABETES/NTRN [address] [place], [place] [phone] Deysi Tolentino, RD [address] [place] [address] documented as of this encounter Visit Diagnoses Not on filedocumented in this encounter Care Teams Humanities Coordinator Relationship Specialty Start Date End Date Thea Atkinson MD [address] [place] [address] PCP - General Internal Medicine 11/23/24 documented as of this encounter
--- OUTSIDE RECORDS SUMMARY | 2025-05-15 14:03 | XMS_ITS | Clinical Summary ---
Author Organization [employer] | [employer] Address [address] [place] [address] [address] [place] [address] Care Team Providers Care Actimize Architect Name Role Phone Thea Atkinson MD Primary [...] 16 g 2 11/29/19 25 Active Tiotropium Parks (Spiriva HandiHaler) [address] 1 [...] Active ergocalcifero l (Vitamin D2) 1.25 MG (89989 UT) capsule Take 1 capsule (1.25 mg) [...] notification to Pharmacy)) neomycin-poly myxin-hydroco rtisone (Cortisporin) [id number] otic suspension Administer 3-4 drops into affected [...] and Symbicort twice daily. - Referral to hiv nurse was sent last week, they will call [...] as needed shortness of breath. Referred to hiv nurse. Advised to do exercise as tolerated, hold for headache, numbness, SOB, exertional chest pain, or extremity weakness. Avoid going to high altitudes including airplane travel until she is seen by hiv nurse Generalized anxiety disorder 04/04/2025 Assessment & Plan [...] Type Department Care Team Description 04/26/2025 Telephone [facility] [address] [place] [phone] Thea Atkinson MD Pulmonology appt 04/17/[address] [address] Thea Atkinson MD pulmonology appt 04/16/2025 9:45 AM EDT Office Visit [address] [address] Thea Atkinson MD Chronic obstructive pulmonary disease with emphysema, unspecified emphysema type (HCC) (Primary Dx); Generalized anxiety disorder; Vitamin D deficiency; Hyperlipidemia, unspecified hyperlipidemia type; IFG (impaired fasting glucose); Elevated blood pressure reading; Acute swimmer's ear of right side 04/16/2025 Travel 04/15/2025 Orders Only [address] [address] [place] 04/15/[address] [address] Thea Atkinson MD CHART PREP 04/15/[address] [address] Thea Atkinson MD 04/05/[address] [address] Thea Atkinson MD [facility] 04/04/2025 10:15 AM EDT Office Visit [address] [address] Thea Atkinson MD Chronic obstructive pulmonary disease with emphysema, unspecified emphysema type (HCC) (Primary Dx); Generalized anxiety disorder; Class 1 obesity due to excess calories with serious comorbidity and body mass index (BMI) of 34.0 to 34.9 in adult; TIJERINA (dyspnea on exertion); Dietary counseling; Exercise counseling 04/04/2025 Results Follow-Up [facility] [address] [place] [phone] Thea Atkinson MD Comprehensive Metabolic Panel, TSH with Reflex to Free T4, Vitamin D, 25-Hydroxy, Total, Immunoassay, Additional followed-up results: 3 04/04/2025 Travel 04/01/2025 Telephone [facility] [address] [place] [address] Thea Atkinson MD Chart prep 04/01/[address] [phone] Thea Atkinson MD Labs Only 03/15/[address] [phone] Thea Atkinson MD from Last 3 Months [...] Description 06/28/2025 10:30 AM EST Office Visit [facility] [address] [place] [address] Thea Atkinson MD [address] [place] [address] 08/07/2025 3:30 PM EST Office Visit [facility] OPTOMETRY [address] [place] [address] Elizabeth Mckeon, OD [address] [place] [address] 08/08/2025 3:00 PM EST Nutrition [facility] DIABETES/NTRN [address] [place] [address] Deysi Tolentino, RD [address] [place] [address] Health Maintenance Due Date Last Done Comments [...] for breast cancer from Last 3 Months or Most Recently Relevant to Health Maintenance Results * (ABNORMAL) Vitamin D, 25-Hydroxy, Total, Immunoassay (04/04/2025 8:49 AM EDT) Vitamin D 25-OH Total 26.7(L) >30 ng/mL [facility] Comment: Health Based Reference Values*< 20 ng/mL Nwmcxyuvn87-25 ng/mL Insufficient> 30 ng/mL Sufficient*Jacquie MORGAN. N [...] ORDERABLES Fin al Result Performing Organization Address [facility]/ZIP Co de Phone Number [facility] [address] [place] [phone] * TSH with Reflex to Free T4 (04/04/2025 8:49 AM EDT) TSH reflex Free T4 0.71 0.32 - 4.0 uIU/mL [facility] Blood 04/04/2025 8:49 AM EDT 04/04/2025 10:58 AM EDT Thea Atkinson MD LAB BLOOD ORDERABLES Fin al Result Performing Organization Address City/[facility]/ZIP Co de Phone Number [facility] [address] [place] [phone] * (ABNORMAL) Lipid Panel with Reflex to Direct LDL (04/04/2025 8:49 AM EDT) Triglycerides 86 <150 mg/dL [facility] Comment:Desirable Triglyceri de: less than 150 mg/dLBorderline High Triglyceride 150-199 mg/dLHigh Triglyceride: 200-499 mg/dLVery High Triglyceride: greater than or equal to 5OO mg/dL Cholesterol 178 <200 mg/dL [facility] Comment:Desirable Cholestero l: less than 200 mg/dLBorderline High Cholesterol: 200-239 mg/dLHigh Cholesterol: greater than 239 mg/dL LDL Cholesterol Calculated 110(H) <100 mg/dL [facility] Comment:Desirable LDL: less than 100 mg/dLNear Optimal/Above Optimal LDL: 110- 129 mg/dLBorderline High LDL: 130-159 mg/dLHigh LDL: 160-189 mg/dLVery High LDL: greater than or equal to 190 mg/dL HDL Cholesterol 51 >40 mg/dL [facility] Comment:Desirable HDL: great er than 40 mg/dL Note: This HDL assay may give artificially low results in patients with liver disease. Blood 04/04/2025 8:49 AM EDT 04/04/2025 10:58 AM EDT us Thea Atkinson MD LAB BLOOD ORDERABLES Fin al Result [facility] [address] [place] [phone] * (ABNORMAL) CBC auto differential (04/04/2025 8:49 AM EDT) White Blood Count 6.3 4.8 - 10.8 X10*3/uL [facility] Red Blood Count 5.18 4.20 - 5.50 X10*6/uL [facility] Hemoglobin 16.3(H) 12.0 - 16.0 g/dl [facility] Hematocrit 50.0(H) 37.0 - 47.0 % [facility] Mean Corpuscular Volume 96.5 80.0 - 98.0 fL [facility] Mean Corpuscular Hemoglobin 31.5 27.0 - 33.0 pg [facility] Mean Corpuscular HGB Conc 32.6 31.0 - 35.0 g/dl [facility] Red Cell Distribution Width 12.7 11.0 - 16.0 % [facility] Platelet Count 276 160 - 400 X10*3/uL [facility] Mean Platelet Volume 8.5(L) 9.4 - 12.3 fL [facility] Neutrophils Percent Auto 68.9 45 - 73 % [facility] Imm Gran Pct Auto 0.5(H) 0.0 - 0.4 % [facility] Lymphocytes Percent Auto 17.8(L) 20 - 40 % [facility] Monocytes Percent Auto 9.4 2 - 11 % [facility] Eosinophils Percent Auto 2.6 0 - 4 % [facility] Basophils Percent Auto 0.8 0 - 2 % [facility] NRBC Pct Auto 0.0 0.0 - 0.2 /100WBC [facility] Neutrophils Absolute Auto 4.3 2.0 - 8.3 x10*3/uL [facility] Imm Gran Abs Auto 0.03 0.00 - 0.03 X10*3/uL [facility] Lymphocytes Absolute Auto 1.1(L) 1.2 - 4.9 X10*3/uL [facility] Monocytes Absolute Auto 0.6 0.1 - 1.2 X10*3/uL [facility] Eosinophils Absolute Auto 0.2 0.0 - 0.4 X10*3/uL [facility] Basophils Absolute Auto 0.1 0.0 - 0.2 X10*3/uL [facility] NRBC Abs Auto 0.000 0.0 - 0.012 X10*3/uL [facility] Blood Venous blood specimen / Unknown 04/04/2025 8:49 AM EDT 04/04/2025 10:58 AM EDT us Thea Atkinson MD LAB BLOOD ORDERABLES Fin al Result [facility] [address] [place] [phone] * (ABNORMAL) Hemoglobin A1c (04/04/2025 8:49 AM EDT) Hemoglobin A1c 6.1(H) <6.0 % [facility] Comment:Hemoglobin A1C Refer ence Range Adults: 4.8 - 6.0 % Non diabetic: < 6.0 % Goal: < 7.0 %Additional Action Suggested: > 8.0 %Note: Hemoglobin A1c results are invalid for patients with abnormal amounts of HbF. Blood transfusions may impact the HbA1c concentration in the patient sample. Estimated Average Glucose 128 mg/dL [facility] Comment:eAG = Estimated ave rage glucose which is %A1C expressed asaverage glucose, using the formula of the A5I-LmcvcuqShwbqgc Glucose study (ADAG), Diabetes Care, Vol.31,#8,Jan. 2007 Blood Venous blood specimen / Unknown 04/04/2025 8:49 AM EDT 04/04/2025 10:58 AM EDT us Thea Atkinson MD LAB BLOOD ORDERABLES Fin al Result [facility] [address] [place] [phone] * (ABNORMAL) Comprehensive Metabolic Panel (04/04/2025 8:49 AM EDT) Sodium 143 135 - 145 mmol/L [facility] Potassium 4.3 3.3 - 5.1 mmol/L [facility] Chloride 105 96 - 108 mmol/L [facility] Carbon Dioxide 31(H) 22 - 29 mmol/L [facility] Anion Gap 11(L) 12 - 20 [facility] Urea Nitrogen (BUN) 12 9 - 16 mg/dL [facility] Creatinine, Serum 0.55 0.5 - 1.4 mg/dL [facility] Estimated Glomerular Filt Rate >60 [facility] Comment:Chronic Kidney Disea se: Estimated GFR < 60 mL/min/1.14e0Pugusj Kidney Disease: Estimated GFR < 15 mL/min/1.73m2 Glucose 97 60 - 115 mg/dL [facility] Calcium 9.2 8.4 - 10.2 mg/dL [facility] Bilirubin, Total 0.4 0.0 - 1.0 mg/dL [facility] Aspartate Amino Transferase 19 5 - 31 U/L [facility] Alanine Aminotransferase 18 0 - 31 U/L [facility] Total Protein 7.2 6.5 - 8.0 g/dL [facility] Albumin Level 4.4 3.5 - 5.0 g/dL [facility] Alkaline Phosphatase 52 39 - 117 U/L [facility] Blood Venous blood specimen / Unknown 04/04/2025 8:49 AM EDT 04/04/2025 10:58 AM EDT us Thea Atkinson MD LAB BLOOD ORDERABLES Fin al Result [facility] [address] [place] [phone] * BI Mammogram Screening Tomosynthesis Bilateral (02/11/2025 4:24 PM EDT) Anatomical Region Laterality Modality Breast Bilateral Mammography 02/11/2025 4:24 PM EDT Narrative 02/15/2025 7:27 PM EDT [facility] [address] [place] [address] Mammography Report Signed Patient: Neli Ingram MR#: [id number] : 1965 Acct:[id number] Age/Sex: 59 / F ADM Date: 02/11/25 Loc: HO.MAMMO Attending Dr: Thea Atkinson MD Ordering Physician: Thea Atkinson MD Results: 1Ne gative Date of Service: 02/11/25 Follow Up: 1 Year From Orig inal Mammogram Procedure(s): MM tomosynthesis screening BI Accession Number(s): [id number] cc: Thea Atkinson MD EXAMINATION: MM SCREENING [...] by Nicolas Peraza MD in OV> 02/15/25 192 DD/ 1624 TD/TT: 02/11/25 1644 Acid Tender: Procedure Note Donotuseinterpreter, Image - [facility] [address] [place], [place] [address] Mammography Report Signed Patient: Neli Ingram MMR#: [id number] : 1965Acct:[id number] Age/Sex: 59 / FADM Date: 02/11/25 Loc: HO.MAMMO Attending Dr: Thea Atkinson MD Ordering Physician: Thea Atkinson MDResults: 1Ne gative Date of Service: 02/11/25Follow Up: 1 Year From Orig inal Mammogram Procedure(s): MM tomosynthesis screening BI Accession Number(s): [id number] cc: Thea Atkinson MD EXAMINATION: MM SCREENING [...] Nicolas Peraza MD 02/15/2025 07:23 PM EDT RP Workstation: [email or web address] Dictated By: Nicolas Peraza MD Signed By: <Electronically signed by Nicolas Peraza MD in OV> 02/15/25 1923 DD/ 1624 TD/TT: 02/11/25 1644 Acid Tender: Thea Atkinson MD IMG BI PROCEDURES Final Result from Last 3 Months or Most Recently Relevant to Health Maintenance Insurance [facility] C3 Care Teams Actimize Architect Relationship Specialty Start Date End Date Thea Atkinson MD [address] [place] [phone] PCP - General Internal Medicine 11/23/24"
== END 2025-05-15 12:05 | disposition home or self-care (01) ==
LOC: HO.HPSW 11:17
PROVIDERS: PCP Internal Medicine; Referring Provider Internal Medicine; Visit Provider Nurse Practitioner Family
DX: J44.9 Chronic obstructive pulmonary disease, unspecified (principal); J45.909 Unspecified asthma, uncomplicated; Z87.891 Personal history of nicotine dependence; Z91.09 Other allergy status, other than to drugs and biological substances
CPT/HCPCS: 99204